=== PATIENT | male | born 1980 | race American Indian/Alaskan Native ===

== ENCOUNTER 2017-05-27 06:07 | Emergency (ER) | payer OTHER ==
[2017-05-27 06:37] LABS: Basophils % (Auto) 0.3 % (0.0-1.8); Hematocrit 45.3 % (35.5-45.6); Hemoglobin 15.7 gm/dl (11.8-15.2); Mean Corpuscular HGB Conc 35 % (32-34); Mean Corpuscular Hemoglobin 30 pg (28-32); Mean Corpuscular Volume 86 fl (84-94); Platelet Count 201 K/mm3 (140-440); Red Blood Count 5.28 M/mm3 (3.65-5.03); Red Cell Distribution Width 13.3 % (13.2-15.2); White Blood Count 8.2 K/mm3 (4.5-11.0)
[2017-05-27 06:53] LABS: Anion Gap 16 mmol/L; BUN/Creatinine Ratio 13; Blood Urea Nitrogen 13 mg/dL (9-20); Calcium 8.5 mg/dL (8.4-10.2); Carbon Dioxide 26 mmol/L (22-30); Chloride 103.7 mmol/L (98-107); Glucose 120 mg/dL (75-100); Potassium 3.5 mmol/L (3.6-5.0); Sodium 142 mmol/L (137-145)
[2017-05-27] MEDS ORDERED: TYLENOL ONE (07:29)
[2017-05-27] MEDS ORDERED: TYLENOL PO ONE (07:36)
[2017-05-27 08:57] LABS: Bilirubin,Urine NEG (Negative); Blood,Urine NEG (Negative); Ketones,Urine NEG (Negative); Leukocyte Esterase,Urine NEG (Negative); Mucus,Urine FEW /HPF; Nitrite,Urine NEG (Negative); Protein,Urine <15 mg/dL mg/dL (Negative)
[2017-05-27 15:17] VITALS: BP 142/86
[2017-05-27] MEDS ORDERED: PERCOCET 5/325 PO ONE (15:50)
[2017-05-27] MEDS ORDERED: FLEXERIL PO ONE (15:50)
--- NOTE | 2017-05-27 15:50 | Emergency Department Report ---
ED Back Pain/Injury HPI - General Chief Complaint: Abdominal Pain Stated Complaint: LOWER BACK PAIN Time Seen by Provider: 05/27/17 15:26 Source: patient, family Limitations: No Limitations - History of Present Illness Initial Comments: Patient here complaining of right flank pain that started at 4 AM this morning. He denies any nausea or vomiting. Denies any fever or chills. Denies any urinary burning frequency or urgency. Denies any blood in his urine. Patient denies any history of kidney stones. He denies any abdominal pain. Patient reports pain is 7 out of 10 and throbbing. Pain is localized to his right flank and he said he's never had this kind of pain before. Patient said nothing makes pain better nothing makes it worse. He said he did not take any [id number] medication for pain. MD Complaint: back pain, back injury, fall -: This morning Similar Symptoms Previously: No Place: home Radiation: none Severity: severe Severity scale (0 -10): 7 Quality: other (Throbbing) Consistency: constant Improves With: none Worsens With: none Context: unknown Associated Symptoms: denies: confusion, weakness, chest pain, numbness, difficulty walking, cough, difficulty urinating, diaphoresis, incontinence, fever/chills, constipation, headaches, abdominal pain, loss of appetite, malaise , nausea/vomiting, rash, seizure, shortness of breath, syncope Treatments Prior to Arrival: other (none) - Related Data Previous Rx's Medication Instructions Recorded Last Taken Type HYDROcodone/APAP 7.5-325 [[place] 1 each PO Q6HR PRN #16 tablet 05/27/17 Unknown Rx 7.5/325] Promethazine [Phenergan TAB] 25 mg PO Q8HR PRN #15 tab 05/27/17 Unknown Rx Tamsulosin [Flomax] 0.4 mg PO QDAY #3 cap 05/27/17 Unknown Rx Allergies Allergy/AdvReac Type Severity Reaction Status Date / Time No Known Allergies Allergy Unverified 05/27/17 06:17 ED Review of Systems ROS: Stated complaint: LOWER BACK PAIN Other details as noted in HPI Comment: All other systems reviewed and negative Constitutional: no symptoms reported Eyes: denies: eye pain, vision change ENT: denies: throat pain Respiratory: no symptoms reported Cardiovascular: denies: chest pain, palpitations, dyspnea on exertion, edema, syncope, paroxysmal nocturnal dyspnea Gastrointestinal: denies: abdominal pain, nausea, vomiting, diarrhea, constipation Genitourinary: denies: urgency, dysuria, frequency, hematuria, discharge, testicular pain, testicular mass Musculoskeletal: back pain (right flank pain). denies: joint swelling, arthralgia, myalgia Skin: denies: rash Neurological: denies: headache, weakness, numbness, paresthesias, confusion, abnormal gait, vertigo ED Past Medical Hx - Past Medical History Previous Medical History?: No - Surgical History Past Surgical History?: No - Family History Family history: no significant - Social History Smoking Status: Current Every Day Smoker Substance Use Type: None - Medications Home Medications: Home Medications Medication Instructions Recorded Confirmed Last Taken Type HYDROcodone/APAP 7.5-325 [[place] 1 each PO Q6HR PRN #16 tablet 05/27/17 Unknown Rx 7.5/325] Promethazine [Phenergan TAB] 25 mg PO Q8HR PRN #15 tab 05/27/17 Unknown Rx Tamsulosin [Flomax] 0.4 mg PO QDAY #3 cap 05/27/17 Unknown Rx ED Physical Exam - General Limitations: No Limitations General appearance: alert, in no apparent distress - Head Head exam: Present: atraumatic, normocephalic, normal inspection - Expanded Head Exam Expanded Head exam: Absent: laceration, abrasion, contusion, hematoma, racoon eyes, sandoval's sign, general tenderness, tenderness of temporal artery, CSF rhinorrhea , CSF otorrhea - Eye Eye exam: Present: normal appearance, PERRL, EOMI Pupils: Present: normal accommodation - ENT ENT exam: Present: normal exam, normal orophraynx, mucous membranes moist - Neck Neck exam: Present: normal inspection, full ROM. Absent: tenderness, meningismus, lymphadenopathy - Respiratory Respiratory exam: Present: normal lung sounds bilaterally. Absent: respiratory distress, wheezes, chest wall tenderness, accessory muscle use - Cardiovascular Cardiovascular Exam: Present: regular rate, normal rhythm, normal heart sounds. Absent: systolic murmur, diastolic murmur - GI/Abdominal GI/Abdominal exam: Present: soft, normal bowel sounds. Absent: distended, tenderness, guarding, rebound, rigid, organomegaly, mass, bruit, pulsatile mass , hernia - Extremities Exam Extremities exam: Present: normal inspection, full ROM, normal capillary refill , other (No clubbing, Cyanosis or edema to ext, +2 pulses in all extyremities. No neurovascular compromise). Absent: tenderness, pedal edema, joint swelling, calf tenderness - Back Exam Back exam: Present: normal inspection, full ROM, CVA tenderness (R), other ( Ambulates without any diffulties). Absent: tenderness, CVA tenderness (L), muscle spasm, paraspinal tenderness, vertebral tenderness, rash noted - Neurological Exam Neurological exam: Present: alert, oriented X3, normal gait - Psychiatric Psychiatric exam: Present: normal affect, normal mood - Skin Skin exam: Present: warm, dry, intact, normal color. Absent: rash ED Course Vital Signs 05/27/17 05/27/17 05/27/17 06:12 07:31 07:32 Temperature 97.5 F L 98.6 F 98.6 F Pulse Rate 77 84 Respiratory 16 20 Rate Blood Pressure 155/98 Blood Pressure 155/98 149/92 [Left] O2 Sat by Pulse 100 100 Oximetry 05/27/17 15:17 Temperature 98.6 F Pulse Rate 85 Respiratory 16 Rate Blood Pressure Blood Pressure 142/86 [Left] O2 Sat by Pulse Oximetry - Reevaluation(s) Reevaluation #1: 05/27/17 17:44 Pt given Tylenol 650 mg in triage area which did not relieve his pain. Patient given potassium 40 mEq for a potassium of 3.51 dose in emergency room. He was later given Percocet 5/325 2 tablets and Flexeril 10 mg when necessary emergency room for right flank pain which relieved this pain. ED Medical Decision Making - Lab Data Result diagrams: 05/27/17 06:20 05/27/17 06:20 Lab Results 05/27/17 05/27/17 05/27/17 Range/Units 06:20 06:20 Unknown WBC 8.2 (4.5-11.0) K/mm3 RBC 5.28 H (3.65-5.03) M/mm3 Hgb 15.7 H (11.8-15.2) gm/dl Hct 45.3 (35.5-45.6) % MCV 86 (84-94) fl MCH 30 (28-32) pg MCHC 35 H (32-34) % RDW 13.3 (13.2-15.2) % Plt Count 201 (140-440) K/mm3 Lymph % (Auto) 36.0 H (13.4-35.0) % Piatt % (Auto) 8.4 H (0.0-7.3) % Eos % (Auto) 5.0 H (0.0-4.3) % Baso % (Auto) 0.3 (0.0-1.8) % Lymph # 2.9 (1.2-5.4) K/mm3 Piatt # 0.7 (0.0-0.8) K/mm3 Eos # 0.4 (0.0-0.4) K/mm3 Baso # 0.0 (0.0-0.1) K/mm3 Seg Neutrophils % 50.3 (40.0-70.0) % Seg Neutrophils # 4.1 (1.8-7.7) K/mm3 Sodium 142 (137-145) mmol/L Potassium 3.5 L (3.6-5.0) mmol/L Chloride 103.7 (98-107) mmol/L Carbon Dioxide 26 (22-30) mmol/L Anion Gap 16 mmol/L BUN 13 (9-20) mg/dL Creatinine 1.0 (0.8-1.5) mg/dL Estimated GFR > 60 ml/min BUN/Creatinine Ratio 13 % Glucose 120 H (75-100) mg/dL Calcium 8.5 (8.4-10.2) mg/dL Urine Color Yellow (Yellow) Urine Turbidity Clear (Clear) Urine pH 7.0 (5.0-7.0) Ur Specific Purvis 1.021 (1.003-1.030) Urine Protein <15 mg/dl (Negative) mg/dL Urine Glucose (UA) Neg (Negative) mg/dL Urine Ketones Neg (Negative) mg/dL Urine Blood Neg (Negative) Urine Nitrite Neg (Negative) Urine Bilirubin Neg (Negative) Urine Urobilinogen 4.0 (<2.0) mg/dL Ur Leukocyte Esterase Neg (Negative) Urine WBC (Auto) 2.0 (0.0-6.0) /HPF Urine RBC (Auto) 2.0 (0.0-6.0) /HPF Urine Mucus Few /HPF - Radiology Data Radiology results: report reviewed CT scan of the abdomen and pelvis reveal patient with 0.48 cm right urethral calculi with moderate hydronephrosis. No focal abnormalities are identified within the liver. This patient demonstrate normal size. No pancreatic abnormalities seen. There is right perinephric stranding and mild to moderate right hydronephrosis. The distal right ureter approximately 4.0 cm proximal to the urinary bladder there is 0.4 cm obstructive calculus. No additional rule out calculi are observed. Left kidney demonstrated no evidence of hydronephrosis. The adrenal glands are unremarkable. Abdominal aorta is normal. No pathological enlarged lymph nodes are identified. No signs of free fluid or free air. No evidence of small bowel dilated dictation. No evidence of colonic devastation no pericolonic inflammatory changes seen. The appendix is identified and is unremarkable - Medical Decision Making ED course: Patient here complaining of right flank pain that started this morning he had no other symptoms. CT scan of abdomen and pelvis without IV contrast shows that patient with 0.48 cm distal right ureteral calculus with moderate hydronephrosis. Patient CBC stable, CMP stable except potassium is 3.5 which is mildly decreased and he was given potassium 40 mEq by mouth 1 in the emergency room. Patient right flank pain was controlled with Percocet 5/ 325 mg 2 tablets and Flexeril 10 mg by mouth. He also had Tylenol 650 mg earlier in triage area. His pain is currently 1 out of 10. Urinalysis negative for infection. I explained to patient that the CT scan showed that he has a kidney stone that is blocking in his right ureter and he will need to follow up with urologist in 2 days. I discussed with him that he needs to drink at least 3 L of water daily to help flush stone out of his system and that if he develops increasing pain, nausea vomiting, fever chills, blood in his urine or urinary burning frequency urgency to return to the emergency room MEGAN otherwise call urologist office on Monday to schedule an appointment. Patient reports that he will be able to follow up with urologist. I also let them know that the CT scan shows that the stone is blocking his right ureter and this can cause loss of his kidney so it is very important for him to follow up. Patient was understanding the discharge instructions, diagnosis and treatment plan and discharged home in stable condition with his family prescription for Shannock and Phenergan. I discussed this case with Dr. Hawkins who is the attending physician in the emergency room. He is aware of patient's CT scan results, lab results and he agrees the patient can be followed up outpatient with prescription for pain medication and nausea medication. Critical care attestation.: If time is entered above; I have spent that time in minutes in the direct care of this critically ill patient, excluding procedure time. ED Disposition Clinical Impression: Right distal ureteral calculus, Hydronephrosis, left, Hypokalemia, Acute right flank pain Disposition: TO HOME OR SELFCARE Is pt being admited?: No Does the pt Need Aspirin: No Condition: Stable Instructions: Kidney Stones (ED), Renal Colic (ED), Flank Pain (ED), Hydronephrosis (ED) Additional Instructions: Please increase your fluid intake to 3 L of fluid daily Please follow up with urologist as instructed and please refer to discharge instruction paperwork for phone number and address You have a kidney stone in your ureter and it shows that there is moderate blockage so if you develop increasing pain that is not controlled by medication , nausea or vomiting, blood in urine and urinary burning frequency urgency and or fever or chills, abdominal pain U will need to return to the emergency room MEGAN These do not drive or operate heavy machinery while taking Shannock and Phenergan as these medication causes drowsiness It is very important that you follow-up with a urologist as kidney stone can lead to loss of kidney. Prescriptions: HYDROcodone/APAP 7.5-325 [[place] 7.5/325] 1 each PO Q6HR PRN #16 tablet PRN Reason: Pain Promethazine [Phenergan TAB] 25 mg PO Q8HR PRN #15 tab PRN Reason: Nausea Tamsulosin [Flomax] 0.4 mg PO QDAY #3 cap Referrals: PRIMARY CAREMD [Primary Care Provider] - 2-3 Days TRUPTI KNOX MD [Staff Physician] - 05/29/17 [facility] [Outside] - 2-3 Days Forms: Work/School Release Form(ED)
--- NOTE | 2017-05-27 16:16 | Cat Scan Report ---
FINAL REPORT EXAM: CT ABDOMEN PELVIS WO CON HISTORY: Flank pain TECHNIQUE: CT abdomen and pelvis without contrast PRIORS: None. FINDINGS: No acute abnormality identified in the lung bases. No focal abnormality identified within the liver parenchyma. The spleen demonstrates normal size and attenuation. No pancreatic abnormalities seen. There is right perinephric stranding and mild to moderate right hydronephrosis. At the distal right ureter approximately 4.0 centimeters proximal to the urinary bladder there is a 0.48 centimeter obstructing calculus. No additional renal calculi are observed. Left kidney demonstrates no evidence hydronephrosis or nephrolithiasis. The adrenal glands are unremarkable. Abdominal aorta is normal in caliber. No pathologically enlarged lymph nodes are identified. No signs of free fluid or free air No evidence of small bowel dilatation. No evidence of colonic dilatation. No pericolonic inflammatory change seen. The appendix is identified and is unremarkable. IMPRESSION: 0.48 centimeter distal right ureteral calculus with moderate hydronephrosis
[2017-05-27] MEDS ORDERED: K-DUR PO ONE (17:11)
== END 2017-05-27 18:32 | disposition home or self-care (01) ==
LOC: ED 06:07
DX: N13.2 Hydronephrosis with renal and ureteral calculous obstruction (principal); E87.6 Hypokalemia; R10.9 Unspecified abdominal pain; F17.200 Nicotine dependence, unspecified, uncomplicated
CPT/HCPCS: 36415; 74176; 80048; 81001; 85025

== ENCOUNTER 2018-09-02 10:36 | Emergency (ER) | payer OTHER ==
[2018-09-02 10:45] VITALS: BP 161/110
[2018-09-02] MEDS ORDERED: IBUPROFEN PO ONE (11:00)
--- NOTE | 2018-09-02 11:05 | Emergency Department Report ---
ED ENT HPI - General Chief complaint: Dental/Oral Stated complaint: TOOTH ACHE Time Seen by Provider: 09/02/18 11:00 Source: patient Mode of arrival: Ambulatory Limitations: No Limitations - History of Present Illness Initial comments: This is a 37-year-old male nontoxic, well nourished in appearance, no acute signs of distress presents to the ED with c/o of left upper toothache 3 weeks. Patient denies following up with a dentist. Patient stated that pain radiates from his job to his left side of head. Patient otherwise denies any head trauma. Patient describes toothache as aching level of 8 out of 10. Patient denies any facial swelling. Patient denies any numbness, tingling, fever, chills, headache, stiff neck, abdominal pain, chest pain, shortness of breath. Patient denies any drug allergies or significant past medical history. MD complaint: tooth pain -: week(s) (3) Location: tooth # 1 - pain Severity: mild Severity scale (0 -10): 8 Quality: aching Consistency: constant Improves with: none Worsens with: none Associated Symptoms: gum swelling, toothache. denies: fever, cough, pain with swallowing, sore throat, tinnitus, hearing loss, discharge from ear, rhinorrhea - Related Data Previous Rx's Medication Instructions Recorded Last Taken Type HYDROcodone/APAP 7.5-325 [[place] 1 each PO Q6HR PRN #16 tablet 05/27/17 Unknown Rx 7.5/325] Promethazine [Phenergan TAB] 25 mg PO Q8HR PRN #15 tab 05/27/17 Unknown Rx Tamsulosin [Flomax] 0.4 mg PO QDAY #3 cap 05/27/17 Unknown Rx Acetaminophen/Codeine [Tylenol 1 tab PO Q6H PRN #12 tab 09/02/18 Unknown Rx /Codeine # 3 tab] Chlorhexidine Mouthwash [Peridex] 15 ml MM BID #1 bottle 09/02/18 Unknown Rx Clindamycin [Clindamycin CAP] 300 mg PO Q8H #21 cap 09/02/18 Unknown Rx Ibuprofen [Motrin] 600 mg PO Q8H PRN #20 tablet 09/02/18 Unknown Rx Allergies Allergy/AdvReac Type Severity Reaction Status Date / Time No Known Allergies Allergy Unverified 05/27/17 06:17 ED Dental HPI - General Chief complaint: Dental/Oral Stated complaint: TOOTH ACHE Time Seen by Provider: 09/02/18 11:00 Source: patient Mode of arrival: Ambulatory Limitations: No Limitations - Related Data Previous Rx's Medication Instructions Recorded Last Taken Type HYDROcodone/APAP 7.5-325 [[place] 1 each PO Q6HR PRN #16 tablet 05/27/17 Unknown Rx 7.5/325] Promethazine [Phenergan TAB] 25 mg PO Q8HR PRN #15 tab 05/27/17 Unknown Rx Tamsulosin [Flomax] 0.4 mg PO QDAY #3 cap 05/27/17 Unknown Rx Acetaminophen/Codeine [Tylenol 1 tab PO Q6H PRN #12 tab 09/02/18 Unknown Rx /Codeine # 3 tab] Chlorhexidine Mouthwash [Peridex] 15 ml MM BID #1 bottle 09/02/18 Unknown Rx Clindamycin [Clindamycin CAP] 300 mg PO Q8H #21 cap 09/02/18 Unknown Rx Ibuprofen [Motrin] 600 mg PO Q8H PRN #20 tablet 09/02/18 Unknown Rx Allergies Allergy/AdvReac Type Severity Reaction Status Date / Time No Known Allergies Allergy Unverified 05/27/17 06:17 ED Review of Systems ROS: Stated complaint: TOOTH ACHE Other details as noted in HPI Constitutional: denies: chills, fever Eyes: denies: eye pain, eye discharge, vision change ENT: dental pain. denies: ear pain, throat pain Respiratory: denies: cough, shortness of breath, wheezing Cardiovascular: denies: chest pain, palpitations Endocrine: no symptoms reported Gastrointestinal: denies: abdominal pain, nausea, diarrhea Genitourinary: denies: urgency, dysuria Musculoskeletal: denies: back pain, joint swelling, arthralgia Skin: denies: rash, lesions Neurological: denies: headache, weakness, paresthesias Psychiatric: denies: anxiety, depression Hematological/Lymphatic: denies: easy bleeding, easy bruising ED Past Medical Hx - Past Medical History Previous Medical History?: No - Surgical History Past Surgical History?: No - Social History Smoking Status: Current Every Day Smoker Substance Use Type: None - Medications Home Medications: Home Medications Medication Instructions Recorded Confirmed Last Taken Type HYDROcodone/APAP 7.5-325 [[place] 1 each PO Q6HR PRN #16 tablet 05/27/17 Unknown Rx 7.5/325] Promethazine [Phenergan TAB] 25 mg PO Q8HR PRN #15 tab 05/27/17 Unknown Rx Tamsulosin [Flomax] 0.4 mg PO QDAY #3 cap 05/27/17 Unknown Rx Acetaminophen/Codeine [Tylenol 1 tab PO Q6H PRN #12 tab 09/02/18 Unknown Rx /Codeine # 3 tab] Chlorhexidine Mouthwash [Peridex] 15 ml MM BID #1 bottle 09/02/18 Unknown Rx Clindamycin [Clindamycin CAP] 300 mg PO Q8H #21 cap 09/02/18 Unknown Rx Ibuprofen [Motrin] 600 mg PO Q8H PRN #20 tablet 09/02/18 Unknown Rx ED Physical Exam - General Limitations: No Limitations General appearance: alert, in no apparent distress - Head Head exam: Present: atraumatic, normocephalic - Eye Eye exam: Present: normal appearance - Expanded ENT Exam Expanded Ear exam: Present: normal external inspection Mouth exam: Present: normal external inspection. Absent: drooling, trismus, muffled voice Teeth exam: Present: dental caries, fractured tooth #, dental tenderness #, gingival enlargement, other (no facial swelling) Throat exam: Positive: normal inspection. Negative: tonsillar erythema, tonsillomegaly, tonsillar exudate, R peritonsillar mass, L peritonsillar mass - Neck Neck exam: Present: normal inspection, full ROM - Extremities Exam Extremities exam: Present: normal inspection, full ROM - Back Exam Back exam: Present: normal inspection, full ROM - Neurological Exam Neurological exam: Present: alert, oriented X3 - Psychiatric Psychiatric exam: Present: normal affect, normal mood - Skin Skin exam: Present: warm, dry, intact, normal color. Absent: rash ED Course Vital Signs 09/02/18 10:43 Temperature 98.3 F Pulse Rate 105 H Respiratory 18 Rate Blood Pressure 161/110 O2 Sat by Pulse 98 Oximetry - Reevaluation(s) Reevaluation #1: 09/02/18 11:03 Patient is speaking in full sentences with no signs of distress noted. Critical care attestation.: If time is entered above; I have spent that time in minutes in the direct care of this critically ill patient, excluding procedure time. ED Disposition Clinical Impression: Dental caries, Gingivitis Disposition: TO HOME OR SELFCARE Is pt being admited?: No Does the pt Need Aspirin: No Condition: Stable Instructions: Dental Caries (ED), Gingivitis (ED), Acetaminophen/Codeine (By mouth) Additional Instructions: Follow-up with a dentist doctor in 3-5 days or if symptoms worsen and continue return to emergency room as soon as possible. Do not operate any machinery while taking Tylenol with codeine as this may cause drowsiness. Prescriptions: Acetaminophen/Codeine [Tylenol /Codeine # 3 tab] 1 tab PO Q6H PRN #12 tab PRN Reason: Pain , Severe (7-10) Chlorhexidine Mouthwash [Peridex] 15 ml MM BID #1 bottle Clindamycin [Clindamycin CAP] 300 mg PO Q8H #21 cap Ibuprofen [Motrin] 600 mg PO Q8H PRN #20 tablet PRN Reason: Pain Referrals: PRIMARY CARE, [Referring] - 3-5 Days BARBI MILTON MD [Staff Physician] - 3-5 Days [facility] [Outside] - 3-5 Days Forms: Work/School Release Form(ED)
== END 2018-09-02 11:16 | disposition home or self-care (01) ==
LOC: ED 10:36
DX: K02.9 Dental caries, unspecified (principal); K05.10 Chronic gingivitis, plaque induced; F17.200 Nicotine dependence, unspecified, uncomplicated
CPT/HCPCS: 99282

== ENCOUNTER 2019-07-15 19:48 | Inpatient (IN) | payer OTHER ==
--- NOTE | 2019-07-15 20:38 | Emergency Department Report ---
Blank Doc - Documentation Documentation: 38-year-old male that presents with URI symptoms and tachycardia. This initial assessment/diagnostic orders/clinical plan/treatment(s) is/are subject to change based on patient's health status, clinical progression and re- assessment by fellow clinical providers in the ED. Further treatment and workup at subsequent clinical providers discretion. Patient/guardians urged not to elope from the ED as their condition may be serious if not clinically assessed and managed. Initial orders include: 1- Patient sent to [facility] for further evaluation and treatment 2- CXR
[2019-07-15] MEDS ORDERED: LORazepam 2 MG/ML VIAL ONE (21:14)
--- NOTE | 2019-07-15 23:33 | XRay Report ---
CHEST 2 VIEWS INDICATION / CLINICAL INFORMATION: cough. COMPARISON: None available. FINDINGS: SUPPORT DEVICES: None. HEART / MEDIASTINUM: No significant abnormality. LUNGS / PLEURA: Lung volumes are reduced with right basilar atelectasis. The lungs are otherwise skylar r. No significant pleural effusion. No pneumothorax. ADDITIONAL FINDINGS: No significant additional findings. IMPRESSION: 1. No acute abnormality of the chest. 2. Right basilar atelectasis. Signer Name: Lux Simmons MD Signed: 07/15/2019 11:29 PM Workstation Name: [id number]
[2019-07-15] MEDS ORDERED: dexAMETHasone 20 MG/5 ML VIAL IV ONE (23:46)
[2019-07-15] MEDS ORDERED: SODIUM CHLORIDE 0.9% 1000 ML 1,000 ML IV ONE (23:46)
[2019-07-15] MEDS ORDERED: ACETAMINOPHEN 500 MG TAB PO ONE (23:47)
[2019-07-15] MEDS ORDERED: ONDANSETRON 4 MG/2 ML INJ IV ONE (23:47)
[2019-07-15] MEDS ORDERED: ASPIRIN 81 MG TAB CHEW PO ONE (23:47)
[2019-07-15] MEDS ORDERED: FAMOTIDINE 20 MG/2 ML INJ IV ONE (23:47)
[2019-07-16 00:12] LABS: Basophils # (Auto) 0.1 K/mm3 (0.0-0.1); Basophils % (Auto) 0.4 % (0.0-1.8); Eosinophils # (Auto) 0.3 K/mm3 (0.0-0.4); Hematocrit 49.3 % (35.5-45.6); Hemoglobin 17.1 gm/dl (11.8-15.2); Lymphocytes # (Auto) 2.8 K/mm3 (1.2-5.4); Mean Corpuscular HGB Conc 35 % (32-34); Mean Corpuscular Volume 86 fl (84-94); Monocytes % (Auto) 13.7 % (0.0-7.3); Red Blood Count 5.72 M/mm3 (3.65-5.03); Red Cell Distribution Width 13.8 % (13.2-15.2)
[2019-07-16 00:27] LABS: Platelet Count 272 K/mm3 (140-440)
[2019-07-16 00:37] LABS: Alanine Aminotransferase 165 units/L (7-56); BUN/Creatinine Ratio 18; Blood Urea Nitrogen 21 mg/dL (9-20); Calcium 8.9 mg/dL (8.4-10.2); Hemolysis Index 13
--- NOTE | 2019-07-16 01:23 | Cat Scan Report ---
CTA CHEST WITH IV CONTRAST INDICATION: chest pain, elevated d-dimer, dyspnea, tachycardia. TECHNIQUE: Axial CT images were obtained through the chest after injection of 100 mL Omnipaque 350 IV contrast. 3 plane MIP reconstructions were produced. All CT scans at this location are performed using CT dose reduction for ALARA by means of automated exposure control. COMPARISON: 2 views of the chest from 07/15/2019. FINDINGS: PULMONARY ARTERIES: Well-opacified without visualization of thromboemboli. AORTA AND ARTERIES: No significant abnormality. MEDIASTINUM: No significant abnormality of the heart. No mass, lymphadenopathy or other significant a bnormality of the remaining mediastinal structures. LUNGS: There is bibasilar atelectasis, right greater than left, without an additional significant pul monary abnormality. No pneumothorax or pleural effusion. ADDITIONAL FINDINGS: None. UPPER ABDOMEN: The gallbladder contains dependent stones/sludge with moderate wall thickening and brandon rounding inflammation. No additional significant abnormality. BONES: No significant osseous abnormality. IMPRESSION: 1. No CT evidence for pulmonary embolism. 2. No acute abnormality of the chest. 3. Cholelithiasis with evidence of acute cholecystitis. Signer Name: Lux Simmons MD Signed: 07/16/2019 1:18 AM Workstation Name: [id number]
--- NOTE | 2019-07-16 01:53 | Emergency Department Report ---
ED Abdominal Pain HPI - General Chief Complaint: Upper Respiratory Infection Stated Complaint: DIFF BREATHING Time Seen by Provider: 07/15/19 20:38 Source: patient Mode of arrival: Ambulatory Limitations: No Limitations - History of Present Illness Initial Comments: Patient is a 38-year-old male with no past medical history who presents to the ED with complaint of acute onset persistent right upper quadrant pain that radiates to the epigastric area and right flank pain with nausea and vomiting, diffuse body aches and pains, subjective fever and chills and shortness of breath with chest pain for the last 1 week but which got worse in the last 3 days. Patient states that he has also been coughing and that these cough makes the pain worse and worse since his shortness of breath. Patient denies dizziness, syncope, sore throat, diarrhea, dysuria, urinary frequency and urgency, hematuria, testicular pain, headache, nasal and sinus congestion or traumatic injury and hematemesis or hematochezia. MD Complaint: abdominal pain (Epigastric, RUQ Pain and right flank pain, Nausea and vomiting; dyspnea) -: Sudden, week(s) (1) Location: RUQ, epigastric, R flank Radiation: RUQ, epigastric, R flank Migration to: no migration Severity scale (0 -10): 6 Quality: aching, sharp Consistency: constant Improves With: nothing Worsens With: vomiting, movement, other (inspiration) Associated Symptoms: denies other symptoms, nausea, vomiting, fever, chills, anorexia. denies: diarrhea, constipation, dysuria, hematemesis, hematochezia, melena, hematuria, syncope, other - Related Data Previous Rx's Medication Instructions Recorded Last Taken Type HYDROcodone/APAP 7.5-325 [[place] 1 each PO Q6HR PRN #16 tablet 05/27/17 Unknown Rx 7.5/325] Promethazine [Phenergan TAB] 25 mg PO Q8HR PRN #15 tab 05/27/17 Unknown Rx Tamsulosin [Flomax] 0.4 mg PO QDAY #3 cap 05/27/17 Unknown Rx Acetaminophen/Codeine [Tylenol 1 tab PO Q6H PRN #12 tab 09/02/18 Unknown Rx /Codeine # 3 tab] Chlorhexidine Mouthwash [Peridex] 15 ml MM BID #1 bottle 09/02/18 Unknown Rx Clindamycin [Clindamycin CAP] 300 mg PO Q8H #21 cap 09/02/18 Unknown Rx Ibuprofen [Motrin] 600 mg PO Q8H PRN #20 tablet 09/02/18 Unknown Rx Allergies Allergy/AdvReac Type Severity Reaction Status Date / Time No Known Allergies Allergy Unverified 05/27/17 06:17 ED Review of Systems ROS: Stated complaint: DIFF BREATHING Other details as noted in HPI Constitutional: chills, fever, malaise Eyes: denies: eye pain, eye discharge, vision change ENT: denies: ear pain, throat pain, congestion Respiratory: cough, shortness of breath. denies: wheezing Cardiovascular: chest pain. denies: palpitations, syncope, paroxysmal nocturnal dyspnea Endocrine: no symptoms reported Gastrointestinal: abdominal pain (right upper quadrant, epigastric and right flank pains), nausea, vomiting. denies: diarrhea, hematemesis, hematochezia Genitourinary: denies: urgency, dysuria, frequency, hematuria, testicular pain, testicular mass Musculoskeletal: arthralgia, myalgia. denies: back pain, joint swelling Skin: denies: rash, lesions Neurological: denies: headache, weakness, paresthesias Psychiatric: denies: anxiety, depression Hematological/Lymphatic: denies: easy bleeding, easy bruising ED Past Medical Hx - Past Medical History Previous Medical History?: No - Surgical History Past Surgical History?: No - Social History Smoking Status: Current Every Day Smoker Substance Use Type: Marijuana - Medications Home Medications: Home Medications Medication Instructions Recorded Confirmed Last Taken Type HYDROcodone/APAP 7.5-325 [[place] 1 each PO Q6HR PRN #16 tablet 05/27/17 Unknown Rx 7.5/325] Promethazine [Phenergan TAB] 25 mg PO Q8HR PRN #15 tab 05/27/17 Unknown Rx Tamsulosin [Flomax] 0.4 mg PO QDAY #3 cap 05/27/17 Unknown Rx Acetaminophen/Codeine [Tylenol 1 tab PO Q6H PRN #12 tab 09/02/18 Unknown Rx /Codeine # 3 tab] Chlorhexidine Mouthwash [Peridex] 15 ml MM BID #1 bottle 09/02/18 Unknown Rx Clindamycin [Clindamycin CAP] 300 mg PO Q8H #21 cap 09/02/18 Unknown Rx Ibuprofen [Motrin] 600 mg PO Q8H PRN #20 tablet 09/02/18 Unknown Rx ED Physical Exam - General Limitations: No Limitations General appearance: alert, in no apparent distress - Head Head exam: Present: atraumatic, normocephalic, normal inspection - Eye Eye exam: Present: normal appearance, PERRL, EOMI Pupils: Present: normal accommodation - ENT ENT exam: Present: normal exam, normal orophraynx, mucous membranes moist, TM's normal bilaterally, normal external ear exam - Neck Neck exam: Present: normal inspection, full ROM - Respiratory Respiratory exam: Present: normal lung sounds bilaterally, chest wall tend erness. Absent: respiratory distress, wheezes, rales, rhonchi, stridor, accessory muscle use, decreased breath sounds, prolonged expiratory - Cardiovascular Cardiovascular Exam: Present: normal rhythm, tachycardia, normal heart sounds. Absent: systolic murmur, diastolic murmur, rubs, gallop - GI/Abdominal GI/Abdominal exam: Present: soft, tenderness (portable epigastric, right upper quadrant and right flank tenderness, positive Rice sign on physical exam), guarding, normal bowel sounds. Absent: hyperactive bowel sounds, hypoactive bowel sounds - Extremities Exam Extremities exam: Present: normal inspection, full ROM, normal capillary refill - Back Exam Back exam: Present: normal inspection, full ROM. Absent: tenderness, muscle s pasm, paraspinal tenderness - Neurological Exam Neurological exam: Present: alert, oriented X3, CN II-XII intact, normal gait, reflexes normal - Psychiatric Psychiatric exam: Present: normal affect, normal mood - Skin Skin exam: Present: warm, dry, intact, normal color. Absent: rash ED Course Vital Signs 07/15/19 20:35 Temperature 98.8 F Pulse Rate 128 H Respiratory 18 Rate Blood Pressure 140/89 O2 Sat by Pulse 95 Oximetry ED Medical Decision Making - Lab Data Result diagrams: 07/15/19 23:52 07/15/19 23:52 - EKG Data Rate: tachycardia - Radiology Data Radiology results: report reviewed, image reviewed Findings [facility] [address] [place] [address] Cat Scan Report Signed Patient: SEVERO NORIEGA MR# : [id number] : 1980 Acct:[id number] Age/Sex: 38 / M ADM Date: 07/15/19 Loc: ED Attending Dr: Ordering Physician: KB TELLO Date of Service: 07/16/19 Procedure(s): CT angio chest Accession Number(s): [id number] cc: KB TELLO CTA CHEST WITH IV CONTRAST INDICATION: chest pain, elevated d-dimer, dyspnea, tachycardia. TECHNIQUE: Axial CT images were obtained through the chest after injection of 100 mL Omnipaque 350 IV contrast. 3 plane MIP reconstructions were produced. All CT scans at this location are performed using CT dose reduction for ALARA by means of automated exposure control. COMPARISON: 2 views of the chest from 07/15/2019. FINDINGS: PULMONARY ARTERIES: Well-opacified without visualization of thromboemboli. AORTA AND ARTERIES: No significant abnormality. MEDIASTINUM: No significant abnormality of the heart. No mass, lymphadenopathy or other significant abnormality of the remaining mediastinal structures. LUNGS: There is bibasilar atelectasis, right greater than left, without an additional significant pulmonary abnormality. No pneumothorax or pleural effusion. ADDITIONAL FINDINGS: None. UPPER ABDOMEN: The gallbladder contains dependent stones/sludge with moderate wall thickening and surrounding inflammation. No additional significant abnormality. BONES: No significant osseous abnormality. IMPRESSION: 1. No CT evidence for pulmonary embolism. 2. No acute abnormality of the chest. 3. Cholelithiasis with evidence of acute cholecystitis. Signer Name: Lux Simmons MD Signed: 07/16/2019 1:18 AM Workstation Name: [id number] Transcribed By: MN Dictated By: Lux Simmons MD Electronically Authenticated By: Lux Simmons MD Signed Date/Time: 07/16/19117 DD/ 4 TD/TT: Findings [facility] [address] [place] [address] XRay Report Signed Patient: SEVERO NORIEGA MR# : [id number] : 1980 Acct:[id number] Age/Sex: 38 / M ADM Date: 07/15/19 Loc: ED Attending Dr: Ordering Physician: ALBERT MEDRANO NP Date of Service: 07/15/19 Procedure(s): XR chest routine 2V Accession Number(s): [id number] cc: ALBERT MEDRANO NP Fluoro Time In Minutes: CHEST 2 VIEWS INDICATION / CLINICAL INFORMATION: cough. COMPARISON: None available. FINDINGS: SUPPORT DEVICES: None. HEART / MEDIASTINUM: No significant abnormality. LUNGS / PLEURA: Lung volumes are reduced with right basilar atelectasis. The lungs are otherwise clear. No significant pleural effusion. No pneumothorax. ADDITIONAL FINDINGS: No significant additional findings. IMPRESSION: 1. No acute abnormality of the chest. 2. Right basilar atelectasis. Signer Name: Lux Simmons MD Signed: 07/15/2019 11:29 PM Workstation Name: [id number] Transcribed By: MN Dictated By: uLx Simmons MD Electronically Authenticated By: Lux Simmons MD Signed Date/Time: 07/15/192328 DD/ 27 - Medical Decision Making This is a 38-year-old male with no past medical history who presented to the ED with acute onset persistent right upper quadrant pain that radiated to the epigastric area and right flank with nausea and vomiting, short ness of breath, persistent dry cough, subjective fever and chills and diffuse body aches and pains for the last 1 week, which got worse in the last 3 days. In the ED, patient is alert and oriented 3, tachycardic but afebrile in triage. EKG shows sinus tachycardia of unknown and 101 bpm. Chest x-ray shows no acute cardiopulmonary abnormalities or pneumonitis. Lab test results show acute leukocytosis of 14,800, acute hyponatremia of 134 mmol per liter, BUN of 21 but normal creatinine level. Total bilirubin was 2.5, and ALT was 165 with alkaline phosphatase of 158. D-dimer level was 1013.20. The rest of the lab test results are nonactionable. Chest CTA showed no CT evidence of PE but C holelithiasis with evidence of acute cholecystitis. These findings were discussed with the ED attending physician Dr. Ysabel Villafuerte who advised that the general surgeon on-call Dr. Freedman be consulted and subsequently the patient be admitted by hospitalist physician leasing sales consultant Dr. Park. I paged and because the patient's case with the general surgeon leasing sales consultant Dr. Freedman, who advised that the patient be started on Zosyn IV, normal saline and pain control and be kept nothing by mouth. Dr. Freedman also advised that the patient be admitted by the hospitalist physician leasing sales consultant and she shall consult on the patient in the morning. I then paged and discussed the patient's case with the hospitalist physician leasing sales consultant Dr. Park who admitted the patient to the Hospital for further evaluation and treatment. Dr. Freedman, the General Surgeon leasing sales consultant to consul on patient in the morning. - Differential Diagnosis Pneumonia, PE, Cholelithiasis; GERD; ACS; Viral gastroenteritis Critical care attestation.: If time is entered above; I have spent that time in minutes in the direct care of this critically ill patient, excluding procedure time. ED Disposition Clinical Impression: Acute abdominal pain in right upper quadrant, Nausea and vomiting in adult Cholelithiasis with cholecystitis Qualifiers: Cholelithiasis location: gallbladder Cholecystitis acuity: acute Biliary obstruction: without biliary obstruction Qualified Code(s): K80.00 - Calculus of gallbladder with acute cholecystitis without obstruction Disposition: OP ADMIT IP TO THIS HOSP Is pt being admited?: Yes Does the pt Need Aspirin: No Condition: Stable Referrals: PRIMARY CARE,MD [Primary Care Provider] - 3-5 Days Time of Disposition: 02:15 Print Language: FILIPINO
[2019-07-16] MEDS ORDERED: PIPERACIL/TAZOBACTA 4.5/NS 100 4.5 GM/100 ML VIAL IV ONE (02:04)
[2019-07-16] MEDS ORDERED: ONDANSETRON 4 MG/2 ML INJ IV ONE (02:04)
[2019-07-16] MEDS ORDERED: MORPHINE 4 MG/1 ML INJ IV ONE (02:05)
[2019-07-16 05:56] LABS: Bilirubin,Urine NEG (Negative); Blood,Urine NEG (Negative); Color,Urine Yellow (Yellow); Mucus,Urine FEW /HPF; Protein,Urine <15 mg/dL mg/dL (Negative); WBC,Urine < 1.0 /HPF (0.0-6.0)
--- NOTE | 2019-07-16 10:17 | Ultrasound Report ---
LIMITED RUQ ABDOMINAL ULTRASOUND INDICATION: cholelithiasis, cholecystitis. COMPARISON: CTA chest 07/16/2019. FINDINGS: Pancreas: Visualized portions show no significant abnormality. Abdominal Aorta: No significant abnormality. IVC: No significant abnormality. Liver: The liver measures 14.7 cm in length. No significant abnormality. Normal hepatopedal blood fl ow in the main portal vein. Gallbladder: There is a mild degree of sludge and tiny stones in the proximal gallbladder. The gallbl adder is not distended however there is mild diffuse gallbladder wall thickening measuring 4 mm. No p ericholecystic fluid collection. Bile ducts: No significant abnormality. Common bile duct measures 3.5 mm. Right kidney: No significant abnormality visualized.. Free fluid: None. Additional Findings: None. IMPRESSION: Cholelithiasis. Mild diffuse gallbladder wall thickening but no distention. These findings are equiv ocal for acute cholecystitis. Please correlate with the patient's clinical presentation.. Signer Name: Seng Gustafson Jr, MD Signed: 07/16/2019 10:13 AM Workstation Name: [id number]
[2019-07-16] MEDS ORDERED: ONDANSETRON 4 MG/2 ML INJ IV PRN ×2 (11:36→13:37)
[2019-07-16] MEDS ORDERED: ACETAMINOPHEN 325 MG TAB PO PRN (11:36)
[2019-07-16] MEDS ORDERED: MORPHINE 2 MG/1 ML INJ IV PRN (11:36)
[2019-07-16] MEDS ORDERED: SODIUM CHLORIDE 0.9% 1000 ML 1,000 ML IV SCH (11:45)
[2019-07-16 12:55] LABS: Alanine Aminotransferase 131 units/L (7-56); Albumin 3.7 g/dL (3.9-5); BUN/Creatinine Ratio 19; Bilirubin,Direct 0.7 mg/dL (0-0.2); Blood Urea Nitrogen 17 mg/dL (9-20); Calcium 8.8 mg/dL (8.4-10.2); Hemolysis Index 9
--- NOTE | 2019-07-16 13:00 | Consultation ---
History of Present Illness Consult date: 07/16/19 Reason for consult: abdominal pain Chief complaint: abdominal pain - History of present illness History of present illness: 38 yo M with no PMHx presented to ER with RUQ and epigastric abdominal pain, sha rp, started 3 days ago. He ate turkish food from a new restaurant for dinner and was awoken from sleep around 12am with these pains. He has never had pain like this before. +nausea and vomited once. NO f/c, cp, sob. Having normal BMs. Patient states the pain is almost resolved now after IV pain medications and antibiotics. Past History Past Medical History: No medical history Past Surgical History: No surgical history Social history: smoking Medications and Allergies Allergies Allergy/AdvReac Type Severity Reaction Status Date / Time No Known Allergies Allergy Unverified 05/27/17 06:17 Home Medications Medication Instructions Recorded Confirmed Last Taken Type HYDROcodone/APAP 7.5-325 [[place] 1 each PO Q6HR PRN #16 tablet 05/27/17 Unknown Rx 7.5/325] Promethazine [Phenergan TAB] 25 mg PO Q8HR PRN #15 tab 05/27/17 Unknown Rx Tamsulosin [Flomax] 0.4 mg PO QDAY #3 cap 05/27/17 Unknown Rx Acetaminophen/Codeine [Tylenol 1 tab PO Q6H PRN #12 tab 09/02/18 Unknown Rx /Codeine # 3 tab] Chlorhexidine Mouthwash [Peridex] 15 ml MM BID #1 bottle 09/02/18 Unknown Rx Clindamycin [Clindamycin CAP] 300 mg PO Q8H #21 cap 09/02/18 Unknown Rx Ibuprofen [Motrin] 600 mg PO Q8H PRN #20 tablet 09/02/18 Unknown Rx Active Meds: Active Medications Acetaminophen (Tylenol) 650 mg PO Q4H PRN PRN Reason: Pain MILD(1-3)/Fever >100.5/KOROMA Sodium Chloride (Nacl 0.9% 1000 Ml) 1,000 mls @ 100 mls/hr IV DIRECT YVETTE Morphine Sulfate (Morphine) 2 mg IV Q4H PRN PRN Reason: Pain, Moderate (4-6) Ondansetron HCl (Zofran) 4 mg IV Q8H PRN PRN Reason: Nausea And Vomiting Sodium Chloride (Sodium Chloride Flush Syringe 10 Ml) 10 ml IV BID YVETTE Sodium Chloride (Sodium Chloride Flush Syringe 10 Ml) 10 ml IV PRN PRN PRN Reason: LINE FLUSH Review of Systems All systems: negative (10 pt ROS performed and negative except for that listed in HPI) Exam Vital Signs Temp Pulse Resp BP Pulse Ox 98.8 F 128 H 18 140/89 95 07/15/19 20:35 07/15/19 20:35 07/15/19 20:35 07/15/19 20:35 07/15/19 20:35 Narrative exam: Gen: AAOx3. NAD ENT: No scleral icterus or conjunctival pallor CV: s1, S2+ Resp: even and unlabored Abd: soft, ND, + RUQ TTP - mild. No r/r/g Ext: no c/c/e Results - Labs 07/15/19 23:52 07/16/19 12:00 Abnormal lab results 07/15/19 07/15/19 07/15/19 Range/Units 23:52 23:52 23:52 WBC 14.8 H (4.5-11.0) K/mm3 RBC 5.72 H (3.65-5.03) M/mm3 Hgb 17.1 H (11.8-15.2) gm/dl Hct 49.3 H (35.5-45.6) % MCHC 35 H (32-34) % [place] % (Auto) 13.7 H (0.0-7.3) % [place] # 2.0 H (0.0-0.8) K/mm3 Seg Neutrophils # 9.6 H (1.8-7.7) K/mm3 D-Dimer 1013.20 H (0-234) ng/mlDDU Sodium 134 L (137-145) mmol/L Chloride 97.2 L (98-107) mmol/L Carbon Dioxide 21 L (22-30) mmol/L BUN 21 H (9-20) mg/dL Glucose 120 H (75-100) mg/dL Total Bilirubin 2.50 H (0.1-1.2) mg/dL Direct Bilirubin (0-0.2) mg/dL ALT 165 H (7-56) units/L Alkaline Phosphatase 158 H (35-129) units/L Total Protein 8.3 H (6.3-8.2) g/dL Albumin (3.9-5) g/dL Ur Specific [place] (1.003-1.030) 07/16/19 07/16/19 Range/Units 05:41 12:00 WBC (4.5-11.0) K/mm3 RBC (3.65-5.03) M/mm3 Hgb (11.8-15.2) gm/dl Hct (35.5-45.6) % MCHC (32-34) % [place] % (Auto) (0.0-7.3) % [place] # (0.0-0.8) K/mm3 Seg Neutrophils # (1.8-7.7) K/mm3 D-Dimer (0-234) ng/mlDDU Sodium (137-145) mmol/L Chloride (98-107) mmol/L Carbon Dioxide (22-30) mmol/L BUN (9-20) mg/dL Glucose 139 H (75-100) mg/dL Total Bilirubin 1.80 H (0.1-1.2) mg/dL Direct Bilirubin 0.7 H (0-0.2) mg/dL ALT 131 H (7-56) units/L Alkaline Phosphatase 141 H (35-129) units/L Total Protein (6.3-8.2) g/dL Albumin 3.7 L (3.9-5) g/dL Ur Specific [place] 1.060 H (1.003-1.030) Diabetes panel 07/15/19 07/16/19 Range/Units 23:52 12:00 Sodium 134 L 137 (137-145) mmol/L Potassium 3.6 (3.6-5.0) mmol/L Chloride 97.2 L 98.3 (98-107) mmol/L Carbon Dioxide 21 L 22 (22-30) mmol/L BUN 21 H 17 (9-20) mg/dL Creatinine 1.2 0.9 (0.8-1.5) mg/dL Glucose 120 H 139 H (75-100) mg/dL Calcium 8.9 8.8 (8.4-10.2) mg/dL AST 33 26 (5-40) units/L ALT 165 H 131 H (7-56) units/L Alkaline Phosphatase 158 H 141 H (35-129) units/L Total Protein 8.3 H 8.0 (6.3-8.2) g/dL Albumin 4.0 3.7 L (3.9-5) g/dL Calcium panel 07/15/19 07/16/19 Range/Units 23:52 12:00 Calcium 8.9 8.8 (8.4-10.2) mg/dL Albumin 4.0 3.7 L (3.9-5) g/dL Pituitary panel 07/15/19 07/16/19 Range/Units 23:52 12:00 Sodium 134 L 137 (137-145) mmol/L Potassium 3.6 (3.6-5.0) mmol/L Chloride 97.2 L 98.3 (98-107) mmol/L Carbon Dioxide 21 L 22 (22-30) mmol/L BUN 21 H 17 (9-20) mg/dL Creatinine 1.2 0.9 (0.8-1.5) mg/dL Glucose 120 H 139 H (75-100) mg/dL Calcium 8.9 8.8 (8.4-10.2) mg/dL Adrenal panel 07/15/19 07/16/19 Range/Units 23:52 12:00 Sodium 134 L 137 (137-145) mmol/L Potassium 3.6 (3.6-5.0) mmol/L Chloride 97.2 L 98.3 (98-107) mmol/L Carbon Dioxide 21 L 22 (22-30) mmol/L BUN 21 H 17 (9-20) mg/dL Creatinine 1.2 0.9 (0.8-1.5) mg/dL Glucose 120 H 139 H (75-100) mg/dL Calcium 8.9 8.8 (8.4-10.2) mg/dL Total Bilirubin 2.50 H 1.80 H (0.1-1.2) mg/dL AST 33 26 (5-40) units/L ALT 165 H 131 H (7-56) units/L Alkaline Phosphatase 158 H 141 H (35-129) units/L Total Protein 8.3 H 8.0 (6.3-8.2) g/dL Albumin 4.0 3.7 L (3.9-5) g/dL - Imaging CT scan - chest: report reviewed, image reviewed US - abdomen: report reviewed, image reviewed Assessment and Plan 38 yo M with acute cholecystitis Plan: 1. NPO 2. IVF - NS@100cc/hr 3. prn pain and nausea control 4. continue abx 5. DVT ppx 6. repeat CMP today - Bilirubin improving. 7. Recommend cholecystectomy. Discussed robotic assisted, possible open cholecystectomy, possible cholangiogram with patient. All risks, benefits, alternatives to surgery discussed and questions answered. Consent obtained. Patient will notify his mother that he is to have surgery today. Thank you, please call with questions. D/W Dr. Warren
[2019-07-16] MEDS ORDERED: PHENYLEPHRINE/NS 1,000 MCG/10 ML SYRINGE (OR USE) IV ONE (13:30)
[2019-07-16] MEDS ORDERED: HYDROmorphone 1 MG/1 ML INJ IV PRN (13:37)
--- NOTE | 2019-07-16 13:42 | Anesthesia Day of Surgery ---
Anesthesia Day of Surgery - Day of Surgery Patient Examined: Yes Patient H&P Reviewed: Yes Patient is NPO: Yes
--- NOTE | 2019-07-16 13:45 | Anesthesia Consultation ---
Anesthesia Consult and Med Hx Date of service: 07/16/19 - Airway Anesthetic Teeth Evaluation: Chipped ROM Head & Neck: Adequate Mental/Hyoid Distance: Adequate Mallampati Class: Class III Intubation Access Assessment: Probably Good - Pre-Operative Health Status ASA Pre-Surgery Classification: ASA2 Proposed Anesthetic Plan: General - Pulmonary Hx Smoking: Yes Hx Asthma: No COPD: No Hx Pneumonia: No Hx Sleep Apnea: Yes (thinks he has LENA) - Central Nervous System Hx Psychiatric Problems: No - Endocrine Hx Renal Disease: Yes (Stone recently) Hx End Stage Renal Disease: No - Hematic Hx Sickle Cell Disease: No - Other Systems Hx Cancer: No
[2019-07-16] MEDS ORDERED: CELECOXIB 200 MG CAP ONE (13:58)
[2019-07-16] MEDS ORDERED: GABAPENTIN 300 MG CAP ONE (13:59)
[2019-07-16] MEDS ORDERED: CELECOXIB 200 MG CAP PO NR (14:00)
[2019-07-16] MEDS ORDERED: ceFAZolin/STERILE WATER 2 GM/20 ML SYRINGE IV NR (14:00)
[2019-07-16] MEDS ORDERED: GABAPENTIN 300 MG CAP PO NR (14:00)
[2019-07-16] MEDS ORDERED: LACTATED RINGERS 1,000 ML IV SCH (14:00)
[2019-07-16] MEDS ORDERED: MIDAZOLAM 2 MG/2 ML INJ IV NR (14:00)
[2019-07-16] MEDS ORDERED: LIDOCAINE (1%) 10 MG/1 ML VIAL 20 ML MDV ONE (14:10)
[2019-07-16] MEDS ORDERED: BUPIVACAINE/PF (0.5%) 5 MG/1 ML 30 ML VIAL INFILTRATI ONE ×2 (14:10→15:03)
[2019-07-16] MEDS ORDERED: PROPOFOL 200 MG/20 ML VIAL IV ONE (14:16)
[2019-07-16] MEDS ORDERED: LIDOCAINE MPF (2%) 20 MG/1 ML VIAL 5 ML ONE (14:16)
[2019-07-16] MEDS ORDERED: HYDROmorphone 1 MG/1 ML INJ ONE (14:16)
[2019-07-16] MEDS ORDERED: LIDOCAINE (1%) 10 MG/1 ML VIAL 20 ML MDV INFILTRATI ONE (15:03)
[2019-07-16] MEDS ORDERED: NEOSTIGMINE 10MG/10 ML INJ MDV ONE (15:30)
[2019-07-16] MEDS ORDERED: GLYCOPYRROLATE 0.4 MG/2 ML INJ ONE (15:30)
[2019-07-16] MEDS ORDERED: dexAMETHasone 20 MG/5 ML VIAL ONE (15:30)
[2019-07-16] MEDS ORDERED: ROCURONIUM 50 MG/5 ML INJ IV ONE (15:31)
[2019-07-16] MEDS ORDERED: ONDANSETRON 4 MG/2 ML INJ ONE (15:31)
[2019-07-16] MEDS ORDERED: LACTATED RINGERS 1,000 ML ONE (15:47)
--- NOTE | 2019-07-16 16:17 | History and Physical Report ---
History of Present Illness Date of admission: 07/16/19 04:22 Chief complaint: SOB and asso generalized abd pain. History of present illness: 38 yo M with no PMHx who presented to the ER with sob and asso worsening RUQ and epigastric abd pain of 3 days duration. He also admitted to nausea with vomiting x1 episode. He denies chest pain, palpitations, cough, fever, chills, constipation, diarrhea, leg swelling, headaches, dizziness, syncope or LOC. His abd pain was relieved with the pain medications he received in the ED. Imaging done was significant for acute cholecystits Past History Past Medical History: No medical history Past Surgical History: No surgical history Social history: smoking (He has 15 yrs of cig smoking. He also admits to occasional alcohol and marijuana use ) Family history: no significant family history (He denies fhx of HTN or DM) Medications and Allergies Allergies Allergy/AdvReac Type Severity Reaction Status Date / Time No Known Allergies Allergy Unverified 05/27/17 06:17 Home Medications Medication Instructions Recorded Confirmed Last Taken Type HYDROcodone/APAP 7.5-325 [[place] 1 each PO Q6HR PRN #16 tablet 05/27/17 Unknown Rx 7.5/325] Promethazine [Phenergan TAB] 25 mg PO Q8HR PRN #15 tab 05/27/17 Unknown Rx Tamsulosin [Flomax] 0.4 mg PO QDAY #3 cap 05/27/17 Unknown Rx Acetaminophen/Codeine [Tylenol 1 tab PO Q6H PRN #12 tab 09/02/18 Unknown Rx /Codeine # 3 tab] Chlorhexidine Mouthwash [Peridex] 15 ml MM BID #1 bottle 09/02/18 Unknown Rx Clindamycin [Clindamycin CAP] 300 mg PO Q8H #21 cap 09/02/18 Unknown Rx Ibuprofen [Motrin] 600 mg PO Q8H PRN #20 tablet 09/02/18 Unknown Rx Active Meds: Active Medications Acetaminophen (Tylenol) 650 mg PO Q4H PRN PRN Reason: Pain MILD(1-3)/Fever >100.5/KOROMA Cefazolin Sodium (Ancef/Sterile Water 2 Gm/20 Ml) 2 gm IV PREOP NR Stop: 07/16/19 18:00 Celecoxib (Celebrex) 200 mg PO PREOP NR Stop: 07/16/19 23:59 Last Admin: 07/16/19 14:00 Dose: 200 mg Documented by: Gabapentin (Gabapentin) 300 mg PO PREOP NR Stop: 07/16/19 23:59 Last Admin: 07/16/19 14:00 Dose: 300 mg Documented by: Hydromorphone HCl (Dilaudid) 0.5 mg IV Q10MIN PRN PRN Reason: Pain , Severe (7-10) Stop: 07/16/19 23:59 Sodium Chloride (Nacl 0.9% 1000 Ml) 1,000 mls @ 100 mls/hr IV DIRECT YVETTE Lactated Ringer's (Lactated Ringers) 1,000 mls @ 125 mls/hr IV DIRECT YVETTE Last Admin: 07/16/19 14:10 Dose: 125 mls/hr Documented by: Midazolam HCl (Versed) 2 mg IV PREOP NR Stop: 07/16/19 23:59 Last Admin: 07/16/19 14:25 Dose: 2 mg Documented by: Morphine Sulfate (Morphine) 2 mg IV Q4H PRN PRN Reason: Pain, Moderate (4-6) Ondansetron HCl (Zofran) 4 mg IV Q8H PRN PRN Reason: Nausea And Vomiting Ondansetron HCl (Zofran) 4 mg IV ONCE PRN PRN Reason: Nausea And Vomiting Stop: 07/16/19 23:25 Sodium Chloride (Sodium Chloride Flush Syringe 10 Ml) 10 ml IV BID YVETTE Sodium Chloride (Sodium Chloride Flush Syringe 10 Ml) 10 ml IV PRN PRN PRN Reason: LINE FLUSH Review of Systems All systems: negative (All other systems reviewed with the pt and are neg unless otherwise stated above) Exam - Constitutional Vitals: Temp Pulse Resp BP Pulse Ox 98.4 F 92 H 18 134/86 100 07/16/19 14:05 07/16/19 14:05 07/16/19 14:05 07/16/19 14:05 07/16/19 14:05 General appearance: Present: no acute distress, well-nourished - EENT Eyes: Present: PERRL, EOM intact ENT: hearing intact, clear oral mucosa - Neck Neck: Present: supple, normal ROM - Respiratory Respiratory effort: normal Respiratory: bilateral: CTA - Cardiovascular Rhythm: regular Heart Sounds: Present: S1 & S2. Absent: rub, click - Extremities Extremities: pulses symmetrical, No edema Peripheral Pulses: within normal limits - Abdominal General gastrointestinal: Present: soft, non-tender, non-distended, normal bowel sounds Male genitourinary: Present: deferred - Integumentary Integumentary: Present: clear, warm, dry - Musculoskeletal Musculoskeletal: gait normal, strength equal bilaterally - Psychiatric Psychiatric: appropriate mood/affect, intact judgment & insight - Neurologic Neurologic: CNII-XII intact, moves all extremities Results - Labs CBC & Chem 7: 07/15/19 23:52 07/16/19 12:00 Labs: Laboratory Last Values WBC 14.8 K/mm3 (4.5-11.0) H 07/15/19 23:52 RBC 5.72 M/mm3 (3.65-5.03) H 07/15/19 23:52 Hgb 17.1 gm/dl (11.8-15.2) H 07/15/19 23:52 Hct 49.3 % (35.5-45.6) H 07/15/19 23:52 MCV 86 fl (84-94) 07/15/19 23:52 MCH 30 pg (28-32) 07/15/19 23:52 MCHC 35 % (32-34) H 07/15/19 23:52 RDW 13.8 % (13.2-15.2) 07/15/19 23:52 Plt Count 272 K/mm3 (140-440) 07/15/19 23:52 Lymph % (Auto) 19.0 % (13.4-35.0) 07/15/19 23:52 [place] % (Auto) 13.7 % (0.0-7.3) H 07/15/19 23:52 Eos % (Auto) 2.0 % (0.0-4.3) 07/15/19 23:52 Baso % (Auto) 0.4 % (0.0-1.8) 07/15/19 23:52 Lymph # 2.8 K/mm3 (1.2-5.4) 07/15/19 23:52 [place] # 2.0 K/mm3 (0.0-0.8) H 07/15/19 23:52 Eos # 0.3 K/mm3 (0.0-0.4) 07/15/19 23:52 Baso # 0.1 K/mm3 (0.0-0.1) 07/15/19 23:52 Seg Neutrophils % 64.9 % (40.0-70.0) 07/15/19 23:52 Seg Neutrophils # 9.6 K/mm3 (1.8-7.7) H 07/15/19 23:52 D-Dimer 1013.20 ng/mlDDU (0-234) H 07/15/19 23:52 Sodium 137 mmol/L (137-145) 07/16/19 12:00 Potassium 4.6 mmol/L (3.6-5.0) D 07/16/19 12:00 Chloride 98.3 mmol/L (98-107) 07/16/19 12:00 Carbon Dioxide 22 mmol/L (22-30) 07/16/19 12:00 Anion Gap 21 mmol/L 07/16/19 12:00 BUN 17 mg/dL (9-20) 07/16/19 12:00 Creatinine 0.9 mg/dL (0.8-1.5) 07/16/19 12:00 Estimated GFR > 60 ml/min 07/16/19 12:00 BUN/Creatinine Ratio 19 % 07/16/19 12:00 Glucose 139 mg/dL (75-100) H 07/16/19 12:00 Calcium 8.8 mg/dL (8.4-10.2) 07/16/19 12:00 Total Bilirubin 1.80 mg/dL (0.1-1.2) H 07/16/19 12:00 Direct Bilirubin 0.7 mg/dL (0-0.2) H 07/16/19 12:00 Indirect Bilirubin 1.1 mg/dL 07/16/19 12:00 AST 26 units/L (5-40) 07/16/19 12:00 ALT 131 units/L (7-56) H 07/16/19 12:00 Alkaline Phosphatase 141 units/L (35-129) H 07/16/19 12:00 Troponin T < 0.010 ng/mL (0.00-0.029) 07/15/19 23:52 Total Protein 8.0 g/dL (6.3-8.2) 07/16/19 12:00 Albumin 3.7 g/dL (3.9-5) L 07/16/19 12:00 Albumin/Globulin Ratio 0.9 % 07/16/19 12:00 Urine Color Yellow (Yellow) 07/16/19 05:41 Urine Turbidity Clear (Clear) 07/16/19 05:41 Urine pH 5.0 (5.0-7.0) 07/16/19 05:41 Ur Specific [place] 1.060 (1.003-1.030) H 07/16/19 05:41 Urine Protein <15 mg/dl mg/dL (Negative) 07/16/19 05:41 Urine Glucose (UA) Neg mg/dL (Negative) 07/16/19 05:41 Urine Ketones 20 mg/dL (Negative) 07/16/19 05:41 Urine Blood Neg (Negative) 07/16/19 05:41 Urine Nitrite Neg (Negative) 07/16/19 05:41 Urine Bilirubin Neg (Negative) 07/16/19 05:41 Urine Urobilinogen 2.0 mg/dL (<2.0) 07/16/19 05:41 Ur Leukocyte Esterase Neg (Negative) 07/16/19 05:41 Urine WBC (Auto) < 1.0 /HPF (0.0-6.0) 07/16/19 05:41 Urine RBC (Auto) 1.0 /HPF (0.0-6.0) 07/16/19 05:41 Urine Mucus Few /HPF 07/16/19 05:41 - Imaging and Cardiology CT scan - chest: report reviewed US - abdomen: report reviewed Assessment and Plan Assessment and plan: Acute gallstone cholecystits -NPO for cholecystectomy -on PRN narcotics -surgery consulted SIRS due to non-infectious cause with organ failure -on empiric IV zosyn Transaminitis -likely 2/2 acute cholecystits -level improving, will monitor Elevated d-dimers -CTA neg for acute PE Mild hyponatremia -improved Metabolic acidosis -improved DVT ppx: Lovenox Time spent: 38 mins
--- NOTE | 2019-07-16 16:30 | Post Operative Note ---
Date of procedure: 07/16/19 Pre-op diagnosis: acute cholecystitis Post-op diagnosis: other (acute gangrenous cholecystitis) Findings: 1. Thickened and distended gallbladder 2. Large stone impacted in neck of gallbladder 3. Inflamed and friable liver bed 4. Dense omental adhesions to gallbladder Procedure: laparoscopic cholecystectomy Anesthesia: GETA, local Surgeon: BEL ROSSI Evaluator Transfer Students: CHIDI CORNELIUS Estimated blood loss: 50-100ml Pathology: list (gallblader) Specimen disposition: to lab Condition: stable Disposition: PACU
[2019-07-16] MEDS ORDERED: PIPERACILLIN/TAZOBACTAM 3.375 3.375 GM/50 ML BAG IV SCH (17:00)
[2019-07-16] MEDS ORDERED: MIDAZOLAM 2 MG/2 ML INJ IV ONE (17:16)
--- NOTE | 2019-07-16 17:37 | Operative Report ---
PREOPERATIVE DIAGNOSIS: Acute cholecystitis. POSTOPERATIVE DIAGNOSIS: Acute gangrenous cholecystitis. FINDINGS: 1. Thickened and distended gallbladder. 2. Large stone impacted in the neck of the gallbladder. 3. An inflamed and friable liver bed. 4. Dense omental adhesions to the gallbladder. PROCEDURE: Laparoscopic cholecystectomy. ANESTHESIA: General endotracheal anesthesia, local. SURGEON: Keesha Freedman DO CRUDE OIL DRIVER: Wayne Vieyra MD ESTIMATED BLOOD LOSS: 50 mL. PATHOLOGY: Gallbladder. SPECIMEN DISPOSITION: To lab. CONDITION ON DISPOSITION: The patient is stable to PACU. HISTORY OF PRESENT ILLNESS AND INDICATION: The patient is a 38-year-old male who presented to the hospital with complaints of right upper quadrant and epigastric abdominal pain. He was found to have an elevated white blood cell count and acute cholecystitis on CT scan of the chest and ultrasound of the abdomen. Recommendation was to proceed with cholecystectomy. All risks, benefits, and alternatives to surgery were discussed with the patient and questions answered. Consent was obtained. PROCEDURE IN DETAIL: The patient was identified in the preoperative area, taken back to the operating room and placed on the operating table in supine position. After anesthesia was induced, the abdomen was prepped and draped in the usual sterile fashion. Timeout was performed. Local anesthetic was infiltrated to all skin incision sites prior to incision. A supraumbilical incision was made using an 11 blade through which a Veress needle was inserted. The Veress needle position was confirmed using saline drop test and the abdomen insufflated to 15 mmHg. Once the abdomen was insufflated, the Veress needle was removed and a 5 mm Optiview trocar placed through this incision. The abdomen was inspected. There was no underlying injury to any of the abdominal structures. An additional 12 mm subxiphoid and two right medial and lateral abdominal trocars were placed under direct visualization. The patient was placed in reverse Trendelenburg and tilted to the left. The gallbladder was obscured by dense adhesions from the omentum to the entire gallbladder. These adhesions were taken down using combination of blunt dissection and hook electrocautery. Once the gallbladder was visualized, it was apparent that it was extremely inflamed and distended. I was unable to grasp the gallbladder due to the distention and inflammation; therefore, it was decided to decompress the gallbladder. A laparoscopic needle was inserted into the fundus of the gallbladder and the gallbladder decompressed of approximately 60 mL of dark green bile. The gallbladder was then grasped and retracted cephalad above the liver. The remainder of the omental adhesions were carefully taken down using combination of blunt dissection and electrocautery. The duodenum was seen and protected during the entire dissection. Once the neck of the gallbladder was reached, the infundibulum was able to be grasped and retracted laterally. There was a very large stone impacted in the neck of the gallbladder. The cystic duct and artery were then very carefully skeletonized and the critical view obtained. Once the cystic duct and artery were seen as the only two structures entering the gallbladder, 3 clips were placed on the proximal aspect of the cystic duct and 1 distally and 2 on the proximal aspect of the cystic artery and 1 distally. These structures were transected in between the clips using EndoShears. The remainder of the gallbladder was then dissected off the liver bed using hook electrocautery. During the dissection, the liver was extremely friable and there was pericholecystic edema. The gallbladder was placed into EndoCatch bag and removed via the 12 mm port, which did need to be extended in full thickness in order to accommodate the large stone. The liver bed was then checked for hemostasis, which was carefully ensured using combination of electrocautery and Holger powder at the end of the case. Prior to the Holger powder being applied, the gallbladder fossa and liver bed were irrigated with copious amount of saline. The saline did return clear. The clips were visualized and intact. There was no bleeding or bile leakage seen from the surgical bed or the area of the clips. At this point, the Holger powder was applied. The 12 mm port fascia was closed with running 0 Vicryl suture and an interrupted 0 Vicryl suture using the Price-Silvia device. The remainder of the ports were removed under direct visualization and the abdomen desufflated. The skin was then closed with 4-0 Monocryl subcuticular stitches and skin glue. At the end of the case, all sponge, instrument, sharp counts were correct x 2. The patient was awoken from anesthesia, extubated, and taken to PACU in stable condition. JOB# [id number] TABBY/MELINDA GUILLERMO
--- NOTE | 2019-07-16 17:53 | Post Anesthesia Evaluation ---
- Post Anesthesia Evaluation Patient Participated: Yes Airway Patent: Yes Stable Respiratory Function: Yes Nausea/Vomiting: No Temp > 96.8F: Yes Pain Manageable: Yes Adequeate Hydration: Yes Anesthesia Complications: No Block Receding Appropriately: Not Applicable Patient on Ventilator: No
[2019-07-17] MEDS: oxyCODONE /ACETAMINOPHEN 5-325MG TAB PO PRN ×2 (06:54→13:10)
[2019-07-17 07:37] LABS: Alanine Aminotransferase 298 units/L (7-56); Albumin 3.4 g/dL (3.9-5); BUN/Creatinine Ratio 16; Blood Urea Nitrogen 13 mg/dL (9-20); Calcium 8.2 mg/dL (8.4-10.2); Hemolysis Index 1
[2019-07-17 07:44] LABS: Basophils % (Auto) 0.1 % (0.0-1.8); Hematocrit 41.2 % (35.5-45.6); Hemoglobin 14.1 gm/dl (11.8-15.2); Lymphocytes # (Auto) 1.4 K/mm3 (1.2-5.4); Lymphocytes % (Auto) 8.1 % (13.4-35.0); Mean Corpuscular HGB Conc 34 % (32-34); Mean Corpuscular Volume 87 fl (84-94); Monocytes # (Auto) 1.3 K/mm3 (0.0-0.8); Monocytes % (Auto) 7.6 % (0.0-7.3); Platelet Count 257 K/mm3 (140-440); Red Blood Count 4.73 M/mm3 (3.65-5.03); Red Cell Distribution Width 13.9 % (13.2-15.2)
[2019-07-17] MEDS ORDERED: ENOXAPARIN 40 MG/0.4 ML INJ SUB-Q SCH (10:00)
--- NOTE | 2019-07-17 14:16 | Discharge Summary ---
Providers - Providers Date of Admission: 07/16/19 04:22 Date of discharge: 07/17/19 Attending physician: LEXII SIDDIQI 07/16/19 02:01 Consult to Physician [CONS] Stat Comment: Consulting Provider: BEL ROSSI Physician Instructions: Keep NPO, Start Zosyn, NS, admit to Hospitalist Reason For Exam: acute cholelithiasis with cholecysttitis Primary care physician: COMMUNITY PLACEMENT WORKER Hospitalization Condition: Stable Procedures: Date of procedure: 07/16/19 Pre-op diagnosis: acute cholecystitis Post-op diagnosis: other (acute gangrenous cholecystitis) Findings: 1. Thickened and distended gallbladder 2. Large stone impacted in neck of gallbladder 3. Inflamed and friable liver bed 4. Dense omental adhesions to gallbladder Procedure: laparoscopic cholecystectomy Anesthesia: BEATRICE, local Surgeon: BEL ROSSI Client Account Specialist: CHIDI CORNELIUS Estimated blood loss: 50-100ml Pathology: list (gallblader) Specimen disposition: to lab Condition: stable Disposition: PACU Hospital course: 38 yo M with no PMHx who presented to the ER with sob and asso worsening RUQ and epigastric abd pain of 3 days duration. He also admitted to nausea with vomiting x1 episode. He denies chest pain, palpitations, cough, fever, chills, constipation, diarrhea, leg swelling, headaches, dizziness, syncope or LOC. His abd pain was relieved with the pain medications he received in the ED. Imaging done was significant for acute cholecystits S./p Cholecystectomy for Acute gallstone cholecystits SIRS due to non-infectious cause with organ failure -on empiric IV zosyn Transaminitis -likely 2/2 acute cholecystits -level improving, will monitor Elevated d-dimers -CTA neg for acute PE Mild hyponatremia -improved Metabolic acidosis -improved Disposition: DC-01 TO HOME OR SELFCARE Core Measure Documentation - Palliative Care Palliative Care/ Comfort Measures: Not Applicable - Core Measures Any of the following diagnoses?: none Exam - Constitutional Vitals: Temp Pulse Resp BP Pulse Ox 97.8 F 64 20 112/75 97 07/17/19 05:05 07/17/19 05:05 07/17/19 13:10 07/17/19 05:05 07/17/19 07:23 General appearance: Present: no acute distress, well-nourished - EENT Eyes: Present: PERRL ENT: hearing intact, clear oral mucosa - Neck Neck: Present: supple, normal ROM - Respiratory Respiratory effort: normal Respiratory: bilateral: CTA - Cardiovascular Heart rate: 70 Rhythm: regular Heart Sounds: Present: S1 & S2. Absent: rub, click - Extremities Extremities: no ischemia, pulses intact, pulses symmetrical, No edema Peripheral Pulses: within normal limits - Abdominal General gastrointestinal: Present: soft, non-tender, non-distended, normal bowel sounds Male genitourinary: Present: normal - Rectal Rectal Exam: deferred - Integumentary Integumentary: Present: clear, warm, dry - Musculoskeletal Musculoskeletal: gait normal, strength equal bilaterally - Psychiatric Psychiatric: appropriate mood/affect, intact judgment & insight - Neurologic Neurologic: CNII-XII intact, moves all extremities Plan Activity: no restrictions Diet: clear liquids (for 2 days and advance) Follow up with: PRIMARY CARE, [Primary Care Provider] - 3-5 Days
--- NOTE | 2019-07-17 14:49 | Progress Note ---
Assessment and Plan 38 yo M s/p laparoscopic cholecystectomy, POD 1 AST, ALT elevated and WBC - likely reactive 2/2 surgery yesterday Bilirubin now normal Plan: 1. Reg diet 2. dc IVF 3. prn PO pain control 4. ok to dc home from surgery standpoint. will follow up in office in 2weeks D/W Dr. Jackson. Thank you, please call with questions. Subjective Date of service: 07/17/19 Narrative: Pt seen and examined. No acute complaints. Pain at epigastric incision. No f/c. Tolerating a reg diet. Objective Vital Signs - 12hr 07/17/19 07/17/19 07/17/19 05:05 07:23 13:10 Temperature 97.8 F Pulse Rate 64 Respiratory 18 20 Rate Blood Pressure 112/75 O2 Sat by Pulse 97 97 Oximetry - General physical appearance Narrative Exam: Gen: AAOx3. NAD CV: S1, S2+ Resp: even and unlabored Abd: soft, ND, NT. incisions c/d/i Ext: no c/c/e - Labs 07/17/19 06:50 07/17/19 06:50 Diabetes panel 07/17/19 07/17/19 Range/Units 06:50 06:50 Sodium 139 (137-145) mmol/L Potassium 4.6 (3.6-5.0) mmol/L Chloride 102.0 (98-107) mmol/L Carbon Dioxide 25 (22-30) mmol/L BUN 13 (9-20) mg/dL Creatinine 0.8 (0.8-1.5) mg/dL Glucose 123 H (75-100) mg/dL Hemoglobin A1c 5.7 (4-6) % Calcium 8.2 L (8.4-10.2) mg/dL AST 277 H (5-40) units/L ALT 298 H (7-56) units/L Alkaline Phosphatase 153 H (35-129) units/L Total Protein 6.9 (6.3-8.2) g/dL Albumin 3.4 L (3.9-5) g/dL Calcium panel 07/17/19 Range/Units 06:50 Calcium 8.2 L (8.4-10.2) mg/dL Albumin 3.4 L (3.9-5) g/dL Pituitary panel 07/17/19 Range/Units 06:50 Sodium 139 (137-145) mmol/L Potassium 4.6 (3.6-5.0) mmol/L Chloride 102.0 (98-107) mmol/L Carbon Dioxide 25 (22-30) mmol/L BUN 13 (9-20) mg/dL Creatinine 0.8 (0.8-1.5) mg/dL Glucose 123 H (75-100) mg/dL Calcium 8.2 L (8.4-10.2) mg/dL Adrenal panel 07/17/19 Range/Units 06:50 Sodium 139 (137-145) mmol/L Potassium 4.6 (3.6-5.0) mmol/L Chloride 102.0 (98-107) mmol/L Carbon Dioxide 25 (22-30) mmol/L BUN 13 (9-20) mg/dL Creatinine 0.8 (0.8-1.5) mg/dL Glucose 123 H (75-100) mg/dL Calcium 8.2 L (8.4-10.2) mg/dL Total Bilirubin 1.10 (0.1-1.2) mg/dL AST 277 H (5-40) units/L ALT 298 H (7-56) units/L Alkaline Phosphatase 153 H (35-129) units/L Total Protein 6.9 (6.3-8.2) g/dL Albumin 3.4 L (3.9-5) g/dL
[2019-07-17 15:45] VITALS: BP 111/72
== END 2019-07-17 16:00 | disposition home or self-care (01) | DRG 417 ==
LOC: ED 19:48 → 3A 07-16 04:22
PROVIDERS: ADMIT Internal Medicine Geriatric Medicine; ATTEND Internal Medicine
PROC: 0FT44ZZ Resection of Gallbladder, Percutaneous Endoscopic Approach (ICD-10-PCS; principal; 2019-07-16)
PROC: 0DNU4ZZ Release Omentum, Percutaneous Endoscopic Approach (ICD-10-PCS; 2019-07-16)
DX: K80.00 Calculus of gallbladder with acute cholecystitis without obstruction (principal); R65.11 Systemic inflammatory response syndrome (SIRS) of non-infectious origin with acute organ dysfunction; E87.1 Hypo-osmolality and hyponatremia; E87.2 Acidosis; K82.A1 Gangrene of gallbladder in cholecystitis; F10.10 Alcohol abuse, uncomplicated; R74.0 Nonspecific elevation of levels of transaminase and lactic acid dehydrogenase [LDH]; Y90.9 Presence of alcohol in blood, level not specified; F17.210 Nicotine dependence, cigarettes, uncomplicated; G47.33 Obstructive sleep apnea (adult) (pediatric); F12.90 Cannabis use, unspecified, uncomplicated; K66.0 Peritoneal adhesions (postprocedural) (postinfection); R79.1 Abnormal coagulation profile; Z79.899 Other long term (current) drug therapy; Z87.442 Personal history of urinary calculi
CPT/HCPCS: 36415; 71046; 71275; 76705; 80053; 81001; 82247; 82248; 83036; 84484; 85025; 85379; 87040; 88304; 93005; 93010; 94760; 96361; 96365; 96366; 96375; 96376; 99406; G0378; J0690; J1100; J1170; J1650; J2060; J2250; J2270; J2370; J2405; J2543; J2704; J2710; J7030; J7120; Q9967

== ENCOUNTER 2020-03-31 13:41 | Emergency (ER) | payer SELFPAY ==
[2020-03-31 13:49] VITALS: BP 156/92
--- NOTE | 2020-03-31 14:30 | Emergency Department Report ---
ED ENT HPI - General Chief complaint: Sore Throat Stated complaint: SORE THROAT , BODYACHE Time Seen by Provider: 03/31/20 14:25 Source: patient Mode of arrival: Ambulatory Limitations: No Limitations - History of Present Illness Initial comments: This pleasant 39-year-old male presents emerged department chief complaint of sore throat, body ache, and malaise that started when he woke up this morning. He denies any associated fever, chills, night sweats, headache, dizziness, blurry vision, chest pain, shortness of breath, nausea, vomiting, diarrhea. He denies any known sick contacts. He denies any past medical history, current medication use or known allergies to medications. - Related Data Previous Rx's Medication Instructions Recorded Last Taken Type Promethazine [Phenergan TAB] 25 mg PO Q8HR PRN #15 tab 05/27/17 Unknown Rx Tamsulosin [Flomax] 0.4 mg PO QDAY #3 cap 05/27/17 Unknown Rx Acetaminophen/Codeine [Tylenol 1 tab PO Q6H PRN #12 tab 09/02/18 Unknown Rx /Codeine # 3 tab] Chlorhexidine Mouthwash [Peridex] 15 ml MM BID #1 bottle 09/02/18 Unknown Rx Clindamycin [Clindamycin CAP] 300 mg PO Q8H #21 cap 09/02/18 Unknown Rx Ibuprofen [Motrin] 600 mg PO Q8H PRN #20 tablet 09/02/18 Unknown Rx HYDROcodone/APAP 7.5-325 [[place] 1 each PO Q6HR PRN #16 tablet 07/17/19 Unknown Rx 7.5-325 mg TAB] Amoxicillin [Trimox CAP] 500 mg PO Q8H #30 capsule 03/31/20 Unknown Rx Nystas/Diphen/Xyl Visc/Mylanta 30 ml MM Q4H PRN #120 ml 03/31/20 Unknown Rx [Magic Mouthwash] methylPREDNISolone [Medrol 4MG 4 mg PO ONCE #1 tab.ds.pk 03/31/20 Unknown Rx DOSEPAK (21 tabs)] Allergies Allergy/AdvReac Type Severity Reaction Status Date / Time No Known Allergies Allergy Unverified 05/27/17 06:17 ED Dental HPI - General Chief complaint: Sore Throat Stated complaint: SORE THROAT , BODYACHE Time Seen by Provider: 03/31/20 14:25 Source: patient Mode of arrival: Ambulatory Limitations: No Limitations - Related Data Previous Rx's Medication Instructions Recorded Last Taken Type Promethazine [Phenergan TAB] 25 mg PO Q8HR PRN #15 tab 05/27/17 Unknown Rx Tamsulosin [Flomax] 0.4 mg PO QDAY #3 cap 05/27/17 Unknown Rx Acetaminophen/Codeine [Tylenol 1 tab PO Q6H PRN #12 tab 09/02/18 Unknown Rx /Codeine # 3 tab] Chlorhexidine Mouthwash [Peridex] 15 ml MM BID #1 bottle 09/02/18 Unknown Rx Clindamycin [Clindamycin CAP] 300 mg PO Q8H #21 cap 09/02/18 Unknown Rx Ibuprofen [Motrin] 600 mg PO Q8H PRN #20 tablet 09/02/18 Unknown Rx HYDROcodone/APAP 7.5-325 [[place] 1 each PO Q6HR PRN #16 tablet 07/17/19 Unknown Rx 7.5-325 mg TAB] Amoxicillin [Trimox CAP] 500 mg PO Q8H #30 capsule 03/31/20 Unknown Rx Nystas/Diphen/Xyl Visc/Mylanta 30 ml MM Q4H PRN #120 ml 03/31/20 Unknown Rx [Magic Mouthwash] methylPREDNISolone [Medrol 4MG 4 mg PO ONCE #1 tab.ds.pk 03/31/20 Unknown Rx DOSEPAK (21 tabs)] Allergies Allergy/AdvReac Type Severity Reaction Status Date / Time No Known Allergies Allergy Unverified 05/27/17 06:17 ED Review of Systems ROS: Stated complaint: SORE THROAT , BODYACHE Other details as noted in HPI Comment: All other systems reviewed and negative Constitutional: denies: chills, fever Eyes: denies: eye pain, eye discharge, vision change ENT: as per HPI, throat pain. denies: ear pain Respiratory: denies: cough, shortness of breath, wheezing Cardiovascular: denies: chest pain, palpitations Endocrine: no symptoms reported Gastrointestinal: denies: abdominal pain, nausea, diarrhea Genitourinary: denies: urgency, dysuria Musculoskeletal: as per HPI, myalgia. denies: back pain, joint swelling, arthralgia Skin: denies: rash, lesions Neurological: denies: headache, weakness, paresthesias Psychiatric: denies: anxiety, depression Hematological/Lymphatic: denies: easy bleeding, easy bruising ED Past Medical Hx - Past Medical History Hx Congestive Heart Failure: No Hx Diabetes: No Hx Renal Disease: Yes (Stone recently) Hx Sickle Cell Disease: No Hx Asthma: No Hx COPD: No Hx HIV: No - Surgical History Past Surgical History?: No - Social History Smoking Status: Current Every Day Smoker - Medications Home Medications: Home Medications Medication Instructions Recorded Confirmed Last Taken Type Promethazine [Phenergan TAB] 25 mg PO Q8HR PRN #15 tab 05/27/17 07/16/19 Unknown Rx Tamsulosin [Flomax] 0.4 mg PO QDAY #3 cap 05/27/17 07/16/19 Unknown Rx Acetaminophen/Codeine [Tylenol 1 tab PO Q6H PRN #12 tab 09/02/18 07/16/19 Unknown Rx /Codeine # 3 tab] Chlorhexidine Mouthwash [Peridex] 15 ml MM BID #1 bottle 09/02/18 07/16/19 Unknown Rx Clindamycin [Clindamycin CAP] 300 mg PO Q8H #21 cap 09/02/18 07/16/19 Unknown Rx Ibuprofen [Motrin] 600 mg PO Q8H PRN #20 tablet 09/02/18 07/16/19 Unknown Rx HYDROcodone/APAP 7.5-325 [[place] 1 each PO Q6HR PRN #16 tablet 07/17/19 Unknown Rx 7.5-325 mg TAB] Amoxicillin [Trimox CAP] 500 mg PO Q8H #30 capsule 03/31/20 Unknown Rx Nystas/Diphen/Xyl Visc/Mylanta 30 ml MM Q4H PRN #120 ml 03/31/20 Unknown Rx [Magic Mouthwash] methylPREDNISolone [Medrol 4MG 4 mg PO ONCE #1 tab.ds.pk 03/31/20 Unknown Rx DOSEPAK (21 tabs)] ED Physical Exam - General Limitations: No Limitations General appearance: alert, in no apparent distress - Head Head exam: Present: atraumatic, normocephalic - Eye Eye exam: Present: normal appearance, PERRL, EOMI - ENT ENT exam: Present: normal exam, mucous membranes moist, other (There is bilateral tonsillar enlargement 2+ without kissing tonsils. No peritonsillar bulging or retropharyngeal bulging. No tongue elevation. There is tender anterior cervical lymphadenopathy.). Absent: normal orophraynx - Neck Neck exam: Present: normal inspection, tenderness, full ROM, lymphadenopathy. Absent: meningismus (Negative Kernig and presents this time.) - Respiratory Respiratory exam: Present: normal lung sounds bilaterally. Absent: respiratory distress, wheezes, rales, rhonchi, stridor, chest wall tenderness - Cardiovascular Cardiovascular Exam: Present: regular rate, normal rhythm. Absent: systolic murmur, diastolic murmur, rubs, gallop - GI/Abdominal GI/Abdominal exam: Present: soft, normal bowel sounds - Rectal Rectal exam: Present: deferred - Extremities Exam Extremities exam: Present: normal inspection, full ROM, normal capillary refill. Absent: tenderness, calf tenderness (Negative Homans sign bilaterally.) - Back Exam Back exam: Present: normal inspection - Neurological Exam Neurological exam: Present: alert, oriented X3 - Psychiatric Psychiatric exam: Present: normal affect, normal mood - Skin Skin exam: Present: warm, dry, intact, normal color. Absent: rash ED Course Vital Signs 03/31/20 03/31/20 13:49 14:27 Temperature 98.3 F 99.4 F Pulse Rate 115 H 104 H Respiratory 18 Rate Blood Pressure 156/92 O2 Sat by Pulse 97 Oximetry ED Medical Decision Making - Medical Decision Making Patient exam was consistent with acute tonsillitis. There is no peritonsillar bulging, retropharyngeal bulging or tongue elevation. No evidence of blood weeks or peritonsillar abscess or retropharyngeal abscess. Patient was given antibiotics, steroids and pain medication and recommended outpatient follow-up his primary care doctor. He was given instructions to return the emerge department any dysphonia, drooling or unilateral swelling. He verbalized understanding the diagnosis, treatment plan and follow-up instructions and all of his questions were answered. - Differential Diagnosis Tonsillitis, strep throat, mono, peritonsillar abscess Critical care attestation.: If time is entered above; I have spent that time in minutes in the direct care of this critically ill patient, excluding procedure time. ED Disposition Clinical Impression: Acute tonsillitis Qualifiers: Pharyngitis/tonsillitis etiology: streptococcus Streptococcal tonsillitis recurrence: non-recurrent Qualified Code(s): J03.00 - Acute streptococcal tonsillitis, unspecified Disposition: DC-01 TO HOME OR SELFCARE Is pt being admited?: No Condition: Stable Instructions: Tonsillitis (ED) Prescriptions: Nystas/Diphen/Xyl Visc/Mylanta [Magic Mouthwash] 30 ml MM Q4H PRN #120 ml PRN Reason: Pain , Severe (7-10) methylPREDNISolone [Medrol 4MG DOSEPAK (21 tabs)] 4 mg PO ONCE #1 tab.ds.pk Amoxicillin [Trimox CAP] 500 mg PO Q8H #30 capsule Referrals: [facility] [Provider Group] - 3-5 Days Forms: Work/School Release Form(ED) Time of Disposition: 14:29
== END 2020-03-31 14:44 | disposition home or self-care (01) ==
LOC: ED 13:41
DX: J03.90 Acute tonsillitis, unspecified (principal); F17.200 Nicotine dependence, unspecified, uncomplicated; Z79.899 Other long term (current) drug therapy; Z87.442 Personal history of urinary calculi
CPT/HCPCS: 99282

== ENCOUNTER 2021-11-16 16:32 | Emergency (ER) | payer OTHER ==
[2021-11-16] MEDS ORDERED: KETOROLAC 10 MG TAB PO ONE (18:07)
[2021-11-16] MEDS ORDERED: DEXAMETHASONE 4 MG TAB PO ONE (18:07)
[2021-11-16] MEDS ORDERED: PENICILLIN G BENZATHINE 1.2 MILLION UNIT/2 ML INJ IM ONE (18:07)
--- NOTE | 2021-11-16 19:12 | Emergency Department Report ---
ED ENT HPI - General Chief complaint: Sore Throat Stated complaint: SORE THROAT Time Seen by Provider: 11/16/21 17:34 Source: patient Mode of arrival: Ambulatory Limitations: No Limitations - History of Present Illness Initial comments: 41-year-old black male with no past medical history presents to the emergency department for evaluation of 2-day history of worsening sore throat. He states that he has had headache and low-grade fever but denies abdominal pain and cough. He denies any sick contacts. MD complaint: sore throat -: Gradual, days(s) (To) Location: throat Severity: severe Severity scale (0 -10): 10 Quality: aching Consistency: constant Worsens with: swallowing Associated Symptoms: fever, pain with swallowing, sore throat. denies: cough, gum swelling, toothache, tinnitus, hearing loss, discharge from ear, rhinorrhea - Related Data Previous Rx's Medication Instructions Recorded Last Taken Type Promethazine [Phenergan TAB] 25 mg PO Q8HR PRN #15 tab 05/27/17 Unknown Rx Tamsulosin [Flomax] 0.4 mg PO QDAY #3 cap 05/27/17 Unknown Rx Acetaminophen/Codeine [Tylenol 1 tab PO Q6H PRN #12 tab 09/02/18 Unknown Rx /Codeine # 3 tab] Chlorhexidine Mouthwash [Peridex] 15 ml MM BID #1 bottle 09/02/18 Unknown Rx Clindamycin [Clindamycin CAP] 300 mg PO Q8H #21 cap 09/02/18 Unknown Rx Ibuprofen [Motrin] 600 mg PO Q8H PRN #20 tablet 09/02/18 Unknown Rx HYDROcodone/APAP 7.5-325 [[place] 1 each PO Q6HR PRN #16 tablet 07/17/19 Unknown Rx 7.5-325 mg TAB] Amoxicillin [Trimox CAP] 500 mg PO Q8H #30 capsule 03/31/20 Unknown Rx Nystas/Diphen/Xyl Visc/Mylanta 30 ml MM Q4H PRN #120 ml 03/31/20 Unknown Rx [Magic Mouthwash] methylPREDNISolone [Medrol 4MG 4 mg PO ONCE #1 tab.ds.pk 03/31/20 Unknown Rx DOSEPAK (21 tabs)] Nystas/Diphen/Xyl Visc/Mylanta 30 ml MM Q4H PRN #240 ml 11/16/21 Unknown Rx [Magic Mouthwash] methylPREDNISolone [Medrol 4MG 4 mg PO DAILY #1 pack 11/16/21 Unknown Rx DOSEPAK (21 tabs)] Allergies Allergy/AdvReac Type Severity Reaction Status Date / Time No Known Allergies Allergy Unverified 05/27/17 06:17 ED Dental HPI - General Chief complaint: Sore Throat Stated complaint: SORE THROAT Time Seen by Provider: 11/16/21 17:34 Source: patient Mode of arrival: Ambulatory Limitations: No Limitations - Related Data Previous Rx's Medication Instructions Recorded Last Taken Type Promethazine [Phenergan TAB] 25 mg PO Q8HR PRN #15 tab 05/27/17 Unknown Rx Tamsulosin [Flomax] 0.4 mg PO QDAY #3 cap 05/27/17 Unknown Rx Acetaminophen/Codeine [Tylenol 1 tab PO Q6H PRN #12 tab 09/02/18 Unknown Rx /Codeine # 3 tab] Chlorhexidine Mouthwash [Peridex] 15 ml MM BID #1 bottle 09/02/18 Unknown Rx Clindamycin [Clindamycin CAP] 300 mg PO Q8H #21 cap 09/02/18 Unknown Rx Ibuprofen [Motrin] 600 mg PO Q8H PRN #20 tablet 09/02/18 Unknown Rx HYDROcodone/APAP 7.5-325 [[place] 1 each PO Q6HR PRN #16 tablet 07/17/19 Unknown Rx 7.5-325 mg TAB] Amoxicillin [Trimox CAP] 500 mg PO Q8H #30 capsule 03/31/20 Unknown Rx Nystas/Diphen/Xyl Visc/Mylanta 30 ml MM Q4H PRN #120 ml 03/31/20 Unknown Rx [Magic Mouthwash] methylPREDNISolone [Medrol 4MG 4 mg PO ONCE #1 tab.ds.pk 03/31/20 Unknown Rx DOSEPAK (21 tabs)] Nystas/Diphen/Xyl Visc/Mylanta 30 ml MM Q4H PRN #240 ml 11/16/21 Unknown Rx [Magic Mouthwash] methylPREDNISolone [Medrol 4MG 4 mg PO DAILY #1 pack 11/16/21 Unknown Rx DOSEPAK (21 tabs)] Allergies Allergy/AdvReac Type Severity Reaction Status Date / Time No Known Allergies Allergy Unverified 05/27/17 06:17 ED Review of Systems ROS: Stated complaint: SORE THROAT Other details as noted in HPI Comment: All other systems reviewed and negative Constitutional: fever. denies: chills ENT: throat pain Respiratory: denies: shortness of breath, SOB with exertion Cardiovascular: denies: chest pain, palpitations Gastrointestinal: denies: abdominal pain, nausea, vomiting Neurological: headache ED Past Medical Hx - Past Medical History Previous Medical History?: No Hx Congestive Heart Failure: No Hx Diabetes: No Hx Renal Disease: Yes (Stone recently) Hx Sickle Cell Disease: No Hx Asthma: No Hx COPD: No Hx HIV: No - Surgical History Past Surgical History?: No - Social History Smoking Status: Current Every Day Smoker - Medications Home Medications: Home Medications Medication Instructions Recorded Confirmed Last Taken Type Promethazine [Phenergan TAB] 25 mg PO Q8HR PRN #15 tab 05/27/17 07/16/19 Unknown Rx Tamsulosin [Flomax] 0.4 mg PO QDAY #3 cap 05/27/17 07/16/19 Unknown Rx Acetaminophen/Codeine [Tylenol 1 tab PO Q6H PRN #12 tab 09/02/18 07/16/19 Unk nown Rx /Codeine # 3 tab] Chlorhexidine Mouthwash [Peridex] 15 ml MM BID #1 bottle 09/02/18 07/16/19 Unknown Rx Clindamycin [Clindamycin CAP] 300 mg PO Q8H #21 cap 09/02/18 07/16/19 Unknown Rx Ibuprofen [Motrin] 600 mg PO Q8H PRN #20 tablet 09/02/18 07/16/19 Unknown Rx HYDROcodone/APAP 7.5-325 [[place] 1 each PO Q6HR PRN #16 tablet 07/17/19 Unknown Rx 7.5-325 mg TAB] Amoxicillin [Trimox CAP] 500 mg PO Q8H #30 capsule 03/31/20 Unknown Rx Nystas/Diphen/Xyl Visc/Mylanta 30 ml MM Q4H PRN #120 ml 03/31/20 Unknown Rx [Magic Mouthwash] methylPREDNISolone [Medrol 4MG 4 mg PO ONCE #1 tab.ds.pk 03/31/20 Unknown Rx DOSEPAK (21 tabs)] Nystas/Diphen/Xyl Visc/Mylanta 30 ml MM Q4H PRN #240 ml 11/16/21 Unknown Rx [Magic Mouthwash] methylPREDNISolone [Medrol 4MG 4 mg PO DAILY #1 pack 11/16/21 Unknown Rx DOSEPAK (21 tabs)] ED Physical Exam - General Limitations: No Limitations General appearance: alert, in no apparent distress - Head Head exam: Present: atraumatic, normocephalic - Eye Eye exam: Present: normal appearance. Absent: conjunctival injection - ENT ENT exam: Absent: normal orophraynx - Expanded ENT Exam Expanded Throat exam: Positive: tonsillar erythema, tonsillomegaly (3+ bilateral tonsillar edema, both tonsils almost touching uvula.), tonsillar exudate. Negat sara: normal inspection, R peritonsillar mass, L peritonsillar mass - Neck Neck exam: Present: lymphadenopathy (Anterior cervical). Absent: normal inspection - Respiratory Respiratory exam: Present: normal lung sounds bilaterally. Absent: respiratory distress, wheezes, rales, rhonchi, stridor, chest wall tenderness - Cardiovascular Cardiovascular Exam: Present: tachycardia, normal heart sounds - GI/Abdominal GI/Abdominal exam: Present: soft, normal bowel sounds. Absent: distended, tenderness, guarding, rebound, rigid - Extremities Exam Extremities exam: Present: normal inspection - Back Exam Back exam: Present: normal inspection. Absent: CVA tenderness (R), CVA tenderness (L) - Neurological Exam Neurological exam: Present: alert, oriented X3, normal gait - Psychiatric Psychiatric exam: Present: normal affect, normal mood - Skin Skin exam: Present: warm, dry, intact, normal color ED Course Vital Signs 11/16/21 11/16/21 16:42 20:17 Temperature 99.0 F Pulse Rate 129 H 108 H Respiratory 18 12 Rate Blood Pressure 134/72 104/64 [Right] O2 Sat by Pulse 95 100 Oximetry ED Medical Decision Making - Medical Decision Making 41-year-old black male with no past medical history presents to the emergency department for evaluation of 2-day history of worsening sore throat. He states that he has had headache and low-grade fever but denies abdominal pain and cough. He denies any sick contacts. Center score 4 points (51 to 53% probability of strep pharyngitis). Patient noted to have bilateral swollen tonsils with exudates along with anterior cervical lymphadenopathy and fever. Patient was treated with one-time dose of Bicillin 1,200,000 units IM along with Decadron 8 mg p.o. and Toradol 10 mg p.o. patient will be discharged home with Medrol Dosepak along with Magic mouthwash to use as needed for sore throat. He is advised to take medication as prescribed and follow-up with primary care provider if no improvement or worsening symptoms. He verbalized understanding of and agreement with plan of care. Critical care attestation.: If time is entered above; I have spent that time in minutes in the direct care of this critically ill patient, excluding procedure time. ED Disposition Clinical Impression: Exudative pharyngitis Disposition: HOME / SELF CARE / HOMELESS Is pt being admited?: No Does the pt Need Aspirin: No Condition: Stable Instructions: Strep Throat, Adult, [id number] Additional Instructions: Take medications as prescribed. Follow-up with primary care provider if no improvement or worsening symptoms. Return to the emergency department as needed. Prescriptions: Nystas/Diphen/Xyl Visc/Mylanta [Magic Mouthwash] 30 ml MM Q4H PRN #240 ml PRN Reason: Sore Throat methylPREDNISolone [Medrol 4MG DOSEPAK (21 tabs)] 4 mg PO DAILY #1 pack Referrals: ALDEN ARROYO MD [Referring] - 3-5 Days Forms: Work/School Release Form(ED) Time of Disposition: 19:12
[2021-11-16 20:17] VITALS: BP 104/64
== END 2021-11-16 20:18 | disposition home or self-care (01) ==
LOC: ED 16:32
DX: J02.9 Acute pharyngitis, unspecified (principal); N20.0 Calculus of kidney; Z79.899 Other long term (current) drug therapy
CPT/HCPCS: 96372; 99282; J0561; J8540